=== PATIENT | male | born 1945 | race Caucasian/White ===

== ENCOUNTER 2020-11-04 10:36 | Outpatient (CLI) | payer MEDICARE, SELFPAY ==
[2020-11-04 12:05] LABS: Alanine Aminotransferase 14 U/L (0-41); Albumin Level 4.3 g/dL (3.5-5.2); Alkaline Phosphatase 61 IU/L (40-130); Anion Gap 11.8 (5-19); Aspartate Amino Transferase 18 U/L (0-40); Blood Urea Nitrogen 25 mg/dL (8-23); Calcium 9.2 mg/dL (8.5-10.5); Carbon Dioxide 28 mmol/L (22-29); Chloride 102 mmol/L (98-107); Chol HDL Ratio 4.18 mg/dL (1.0-5.00); Cholesterol 167 mg/dL (0-200); Globulin 2.4 g/dL (1.3-4.6); Glucose 124 mg/dL (65-115); HDL Cholesterol 40 mg/dL (60-100); LDL Cholesterol Calculated 110 mg/dL (50-129); LDL HDL Ratio 2.75 RATIO (0.00-3.22); Osmolality Calculated 292 mOsm/kg (285-295); Potassium 3.8 mmol/L (3.5-5.1); Sodium 138 mmol/L (136-145); Thyroid Stimulating Hormone 1.71 uIU/mL (0.27-4.20); Total Bilirubin 0.5 mg/dL (0.15-1.2); Total Protein 6.7 g/dL (6.6-8.7); Triglycerides 86 mg/dL (0-150)
[2020-11-04 12:57] LABS: Creatinine Urine, Random 89 mg/dL (39-259); Microalbum Creatinine Ratio Ur 22 mg/dL (0-20); Microalbumin Random Urine 2 ug/dL (0-20)
[2020-11-04 13:12] LABS: Estmated Average Glucose 154
== END 2020-11-04 10:37 | disposition home or self-care (01) ==
PROVIDERS: PCP Nurse Practitioner Family; Visit Provider Nurse Practitioner Family
DX: E78.2 Mixed hyperlipidemia (principal); E11.43 Type 2 diabetes mellitus with diabetic autonomic (poly)neuropathy; I10 Essential (primary) hypertension
CPT/HCPCS: 36415; 80053; 80061; 82044; 83036; 84443

== ENCOUNTER 2021-12-15 12:43 | Outpatient (CLI) | payer MEDICARE, SELFPAY ==
--- NOTE | 2021-12-15 12:53 | XR_ITS ---
WS: [id number] XR chest 2V* [id number] REASON FOR EXAM: COUGH FINDINGS: Cardiac device overlying the left chest with transvenous left subclavian vein leads to the right atri um and right ventricular apex. Mild cardiomegaly. There is a small to moderate right pleural effusion. There are reticular lung opacities in the right lower lobe and in the anterior right upper lobe. Degenerative spondylosis in the mid and lower thoracic spine, moderate. XR/XR chest 2V* [id number] IMPRESSION: Reticular opacities in the right lung which are most indicative of subacute pne umonitis. Less likely congestive failure.
[2021-12-15 14:01] LABS: Basophils % 0.2 %; Eosinophils # 0.1 10^3/uL (0.0-0.8); Lymphocytes # 1.4 10^3/uL (0.8-4.8); Lymphocytes % 17.7 %; Mean Corpuscular HGB Conc 33.3 g/dL (30.0-36.0); Mean Corpuscular Volume 93.1 fl (80-94); Mean Platelet Volume 8.5 fL (7.4-10.4); Monocytes # 0.6 10^3/uL (0.2-0.9); Monocytes % 7.2 %; Neutrophils # 5.93 10^3/uL (1.8-7.7); Neutrophils % 73.7 %; Nucleated Red Blood Cells % 0 %; Platelet Count 397 10^3/cmm (130-400); Red Blood Count 4.19 10^6/uL (4.1-5.3); Red Cell Distribution Width 12.6 % (12.1-15.1); White Blood Count 8.1 10^3/uL (4.0-10.0)
[2021-12-15 14:19] LABS: Estmated Average Glucose 151; Hemoglobin A1C 6.9 % (4.0-6.0)
[2021-12-15 14:26] LABS: Alanine Aminotransferase 30 U/L (0-41); Albumin Level 3.7 g/dL (3.5-5.2); Alkaline Phosphatase 68 IU/L (40-130); Anion Gap 16.2 (5-19); Aspartate Amino Transferase 16 U/L (0-40); Blood Urea Nitrogen 18 mg/dL (8-23); Calcium 8.2 mg/dL (8.5-10.5); Carbon Dioxide 26 mmol/L (22-29); Chloride 97 mmol/L (98-107); Free T4 Free Thyroxine 1.44 ng/dL (0.82-1.77); Glucose 191 mg/dL (65-115); Osmolality Calculated 287 mOsm/kg (285-295); Potassium 4.2 mmol/L (3.5-5.1); Sodium 135 mmol/L (136-145); Thyroid Stimulating Hormone 1.22 uIU/mL (0.27-4.20); Total Bilirubin 0.3 mg/dL (0.15-1.2); Total Protein 5.7 g/dL (6.6-8.7)
== END 2021-12-15 12:44 | disposition home or self-care (01) ==
PROVIDERS: PCP Nurse Practitioner Family; Visit Provider Nurse Practitioner Family
DX: R05.9 Cough, unspecified (principal); Z86.16 Personal history of COVID-19; J45.998 Other asthma
CPT/HCPCS: 36415; 71046; 80053; 83036; 84153; 84439; 84443; 85025

== ENCOUNTER 2022-03-01 04:40 | Inpatient (IN) | payer MEDICARE, SELFPAY ==
[2022-03-01] VITALS (54 sets, daily range): BP systolic 75–131; BP diastolic 48–88; PULSE 73–126; RESP 16–26; TEMP 36.3–37; O2SAT 95–100; BMI 23.0
[2022-03-01] MEDS: sodium chloride 0.9% 1,000 ML 999 ML IV (04:52)
--- NOTE | 2022-03-01 04:52 | W.ED.GIBLEED ---
HPI - GI Bleed General: Chief complaint: Abdominal Pain Stated complaint: N/V/D Time Seen by Provider: 03/01/22 04:42 Source: patient Mode of arrival: ambulatory Limitations: no limitations History of Present Illness: 76-year-old male who states that over the last 2 days he has been having vomiting blood along with dark tarry stools. He states he had multiple episodes of bloody stools over the last 2 days with getting much worse through the night. He states that he been having stools roughly every hour that is been dark in nature. Patient here is diaphoretic and pale and states he feels very weak and diaphoretic and feeling is in a pass out when he stands blood pressure here is 79/53 currently. No history of GI bleeds in the past he is not on any blood thinners no history of any liver disease PFSH ED PFSH: Medical History Arrhythmia BPH (benign prostatic hyperplasia) Diabetes Erectile dysfunction Hyperlipidemia Hypertension Pacemaker Family History Sister Anesthesia complication Father CAD (coronary artery disease), Onset Age: 33 Dementia Grandfather Diabetes Denies family history of Clotting disorder Chronic kidney disease (CKD) Suicide Bleeding disorder Lung disease Cancer Stroke Social History Smoking and tobacco status: never smoked Alcohol intake: never Physical Exam Const: COMMON NORMALS: patient oriented x3 and healthy appearing GENERAL APPEARANCE: in distress and ill appearing HENMT: COMMON NORMALS: normocephalic and atraumatic HEAD & SCALP: normocephalic and atraumatic Eye: COMMON NORMALS: Equal, round and reactive pupils present and EOMs intact bilaterally PUPIL: Yes Equal, round and reactive pupils present Neck/C-Spine: COMMON NORMALS: full ROM and supple Chest: COMMONS NORMALS: normal inspection of the chest and normal palpation of entire chest wall Resp: COMMON NORMALS: normal respiratory effort, No retractions, No use of accessory muscles and clear to auscultation bilaterally AUSCULTATION: clear to auscultation bilaterally Cardio: COMMON NORMALS: regular rhythm and No murmurs present (Cardio) RATE: tachycardic RHYTHM: regular rhythm GI: COMMON NORMALS: Normal to inspection, nondistended, normoactive bowel sounds present, Soft to palpation, non-tender and no masses PALPATION: Yes Soft to palpation OTHER: Rectal exam positive for black stools that is Hemoccult positive Extremity: COMMON NORMALS: normal to inspection and full ROM Neuro: COMMON NORMALS: patient oriented x3, moves all extremities and no focal motor deficits Psych: COMMON NORMALS: mental status grossly normal, Normal thought process present and cooperative THOUGHT PROCESS: Normal thought process present Skin: COMMON NORMALS: no rashes or lesions noted and no wounds NARRATIVE SKIN EXAM: pale and diaphoretic GENERAL SKIN EXAM: no rashes or lesions noted Course Vital Signs: Vital signs: Vital Signs Temperature 97.8 F 03/01/22 05:16 Pulse Rate 98 03/01/22 05:16 Respiratory Rate 18 03/01/22 05:16 Blood Pressure 114/54 03/01/22 05:16 Pulse Oximetry 99 03/01/22 05:16 MDM - GI Bleed Medical Decision Making Patient presents here with a likely upper GI bleed. Patient first driving was tachycardic hypotensive and pale and diaphoretic. He is improved appearing here after transfusion blood pressures improved to 103/55 patient also given Protonix and a Protonix drip. I spoke to hospitalist along with surgeon will admit to the ICU. Lab Data : 03/01/22 04:54 03/01/22 04:54 Laboratory Results WBC 9.9 10^3/uL (4.0-10.0) 03/01/22 04:54 RBC 3.01 10^6/uL (4.1-5.3) L 03/01/22 04:54 Hgb 9.4 g/dL (11.7-16.6) L 03/01/22 04:54 Hct 29.0 % (42.0-52.0) L 03/01/22 04:54 MCV 96.3 fl (80-94) H 03/01/22 04:54 MCH 31.2 pg (28.0-34.0) 03/01/22 04:54 MCHC 32.4 g/dL (30.0-36.0) 03/01/22 04:54 RDW 13.6 % (12.1-15.1) 03/01/22 04:54 Plt Count 223 10^3/cmm (130-400) 03/01/22 04:54 MPV 10.6 fL (7.4-10.4) H 03/01/22 04:54 Neut % (Auto) 63.0 % 03/01/22 04:54 Lymph % (Auto) 27.7 % 03/01/22 04:54 [place] % (Auto) 8.7 % 03/01/22 04:54 Eos % (Auto) 0.0 % 03/01/22 04:54 Baso % (Auto) 0.1 % 03/01/22 04:54 Neut # (Auto) 6.21 10^3/uL (1.8-7.7) 03/01/22 04:54 Lymph # (Auto) 2.7 10^3/uL (0.8-4.8) 03/01/22 04:54 [place] # (Auto) 0.9 10^3/uL (0.2-0.9) 03/01/22 04:54 Eos # (Auto) 0.0 10^3/uL (0.0-0.8) 03/01/22 04:54 Baso # (Auto) 0.0 10^3/uL (0.0-0.1) 03/01/22 04:54 Nucleated RBC % (auto) 0 % 03/01/22 04:54 Nucleated RBCs # 0.0 /100WBC 03/01/22 04:54 Critical Care Time Critical Care Time: Critical Care Time: Yes Total Critical Care Time: 40 Attestation: The high probability of a clinically significant, sudden or life threatening deterioration of the patient's gi system(s) required my full and direct attention, intervention and personal management. The critical care time is as shown. This time is in addition to time spent performing any reported procedures but includes the following: [x] Data and vital sign review and interpretation [x] Patient assessment, examination and intervention [x] Documentation [x] Medication orders and management Discharge Plan Discharge Condition: Stable Prescriptions: No Action propranolol 20 mg tablet 20 mg PO TID 0RF metformin 1,000 mg tablet 1,000 mg PO BID 0RF cetirizine 10 mg tablet 10 mg PO DAILY 0RF fluticasone propionate [Flonase Allergy Relief] 50 mcg/actuation spray,suspension 2 spray INTRANASAL DAILY 0RF Rx Instructions: administer into each nostril finasteride 5 mg tablet 5 mg PO DAILY 0RF aspirin [Adult Low Dose Aspirin] 81 mg tablet,delayed release (DR/EC) 81 mg PO DAILY 0RF tamsulosin 0.4 mg capsule 0.8 mg PO DAILY 0RF cephalexin 500 mg capsule 500 mg PO QID 0RF primidone 50 mg tablet 50 mg PO QID 0RF Pro Fe 180 mg iron capsule 180 mg PO BID 0RF cholecalciferol (vitamin D3) 25 mcg (1,000 unit) capsule 25 mcg PO DAILY 0RF zinc 50 mg tablet 50 mg PO DAILY 0RF Jardiance 25 mg tablet 25 mg PO DAILY 0RF [id number]-algal oil [Metanx (algal oil)] 3 mg-35 mg-2 mg -90.314 mg capsule 1 cap PO BID 0RF losartan 100 mg tablet 100 mg PO DAILY 0RF rosuvastatin 10 mg tablet 10 mg PO DAILY 0RF glipizide 5 mg tablet 5 mg PO DAILY [id number] Referrals: Juan Alberto Holloway RN, TICKET PRINTER AND TAGGER [Primary Care Provider] - Coding Level of Care Code ED Resort Desk Clerk for Chg Fwd Exam Comprehensive
[2022-03-01] MEDS: ondansetron 2 mg/ML SDV 2 mL 4 MG IVP (04:53)
[2022-03-01] MEDS: pantoprazole 40 mg SDV 80 MG IVP (04:57)
[2022-03-01 05:03] LABS: Basophils % 0.1 %; Hemoglobin 9.4 g/dL (11.7-16.6); Lymphocytes # 2.7 10^3/uL (0.8-4.8); Lymphocytes % 27.7 %; Mean Corpuscular HGB Conc 32.4 g/dL (30.0-36.0); Mean Corpuscular Hemoglobin 31.2 pg (28.0-34.0); Mean Corpuscular Volume 96.3 fl (80-94); Mean Platelet Volume 10.6 fL (7.4-10.4); Monocytes # 0.9 10^3/uL (0.2-0.9); Monocytes % 8.7 %; Neutrophils # 6.21 10^3/uL (1.8-7.7); Nucleated Red Blood Cells % 0 %; Platelet Count 223 10^3/cmm (130-400); Red Blood Count 3.01 10^6/uL (4.1-5.3); Red Cell Distribution Width 13.6 % (12.1-15.1); White Blood Count 9.9 10^3/uL (4.0-10.0)
--- NOTE | 2022-03-01 05:24 | ECG_ITS ---
[facility] Test Date: 2022-03-01 Pat Name: Jefferson Gamez Department: Room: [facility] Gender: Male Relations Manager: : 1945 Requested By: Faith Sierra Order Number: [id number] Marquise MD: Vamsi Craig M.D. Measurements Intervals Abie Rate: 110 P: -27 MA: 233 QRS: -68 QRSD: 212 T: 110 QT: 461 QTc: 624 Interpretive Statements ELECTRONIC VENTRICULAR PACEMAKER ABNORMAL RHYTHM ECG No previous ECG available for comparison Electronically Signed On 03-02-2022 10:47:52 CDT by Vamsi Craig M.D. [email or web address].[employer]/store/OM/[id number]
--- NOTE | 2022-03-01 05:26 | XRR_ITS ---
PROCEDURE INFORMATION: Exam: XR Chest Exam date and time: 03/01/2022 5:36 AM Age: 76 years old Clinical indication: Shortness of breath; Prior surgery; Surgery type: Pacemaker; Patient HX: SOB. ; Additional info: Gi bleed TECHNIQUE: Imaging protocol: XR of the chest. Views: 1 view. COMPARISON: CR XR chest 2V* [id number] 12/15/2021 1:13 PM FINDINGS: Tubes, catheters and devices: Stable left pacemaker. Lungs: Unremarkable. No consolidation. Pleural spaces: Interval resolution of right pleural fluid collection. Heart/Mediastinum: Unremarkable. No cardiomegaly. Bones/joints: Unremarkable. XR/XR chest 1V portable [id number] IMPRESSION: Interval resolution of right pleural fluid collection.
[2022-03-01 05:28] LABS: INR 1.26 (0.8-1.2)
[2022-03-01 05:31] LABS: Alanine Aminotransferase 16 U/L (0-41); Albumin Level 3.6 g/dL (3.5-5.2); Alkaline Phosphatase 48 IU/L (40-130); Anion Gap 21.5 (5-19); Aspartate Amino Transferase 11 U/L (0-40); Calcium 8.6 mg/dL (8.5-10.5); Carbon Dioxide 18 mmol/L (22-29); Chloride 102 mmol/L (98-107); Globulin 1.7 g/dL (1.3-4.6); Glucose 381 mg/dL (65-115); Lipase 16 U/L (13-60); Osmolality Calculated 328 mOsm/kg (285-295); Potassium 4.5 mmol/L (3.5-5.1); Sodium 137 mmol/L (136-145); Total Bilirubin 0.3 mg/dL (0.15-1.2); Total Protein 5.3 g/dL (6.6-8.7)
[2022-03-01 05:35] LABS: Blood Urea Nitrogen 92 mg/dL (8-23)
[2022-03-01 05:57] LABS: Magnesium 1.8 mg/dL (1.7-2.3)
--- NOTE | 2022-03-01 05:57 | P.HP_ITS ---
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 On presentatio n blood pressure low at 77/48. Tachycardic, 122. Received IV fluid bolus 1000 mL, started on PRBC transfusion, with hemoglobin noted down to 9.4 from 13 in December. Currently receiving second unit PRBC. Noted to have BUN of 92. He received 80 mg of Protonix IV push. Is started on Protonix drip. Creatinine is also elevated compared to normal prior currently at 1.4. Serum bicarb 18, anion gap 21.5. Lipase is normal. Liver parameters normal. He takes 81 mg of aspirin daily. Denies any NSAID use. Does not drink any alcohol. Denies any history of liver disease. He states otherwise has been at baseline state of health other than some seasonal allergy symptoms. Review of Systems Const: Denies: fever(s), chills, body aches or malaise Eyes: Denies: change in vision, eye discomfort or eye redness ENMT: Denies: throat pain, oral sores or ear or mastoid pain Card: Denies: chest pain, edema, pre-syncope or dyspnea on exertion Resp: Denies: dyspnea, productive cough, change in phlegm color or hemoptysis GI: Reports: abdominal pain (Mild generalized soreness from vomiting), coffee ground emesis and melena; Denies: nausea or vomiting : Denies: flank pain, difficulty urinating, urinary frequency or hematuria Musc: Denies: back pain, joint swelling or joint redness Skin/Breast: Denies: rash or new lesions Neuro: Denies: headache(s), numbness in extremities, weakness in extremities, dizziness, confusion or seizure-like activity Endo: Denies: polyuria or polydipsia Shaji/Lymph: Denies: easy bleeding or tender lymph nodes All/Imm: Denies: urticaria or tongue swelling Medications/Allergies Home Medications Medication Instructions Recorded Confirmed Last Taken Type aspirin 81 mg tablet,delayed 81 mg PO DAILY 05/11/20 Unknown History release (Adult Low Dose Aspirin) cetirizine 10 mg tablet 10 mg PO DAILY tab 05/11/20 Unknown History finasteride 5 mg tablet 5 mg PO DAILY 05/11/20 Unknown History fluticasone propionate 50 2 spray INTRANASAL DAILY 05/11/20 Unknown History mcg/actuation nasal spray,suspension (Flonase Allergy Relief) metformin 1,000 mg tablet 1,000 mg PO BID 05/11/20 Unknown History propranolol 20 mg tablet 20 mg PO TID 05/11/20 Unknown History cephalexin 500 mg capsule 500 mg PO QID cap 10/23/21 Unknown History cholecalciferol (vitamin D3) 25 25 mcg PO DAILY 10/23/21 Unknown History mcg (1,000 unit) capsule empagliflozin 25 mg tablet 25 mg PO DAILY tab 10/23/21 Unknown History glipizide 5 mg tablet 5 mg PO DAILY PRN tab 10/23/21 Unknown History levomefolate Ca 3 mg-B6 35 1 cap PO BID 10/23/21 Unknown History mg-meB12 2 mg-algal oil 90.314 mg capsule (Metanx (algal oil)) losartan 100 mg tablet 100 mg PO DAILY tab 10/23/21 Unknown History polysaccharide iron complex 180 mg 180 mg PO BID cap 10/23/21 Unknown History iron capsule primidone 50 mg tablet 50 mg PO QID tab 10/23/21 Unknown History rosuvastatin 10 mg tablet 10 mg PO DAILY tab 10/23/21 Unknown History tamsulosin 0.4 mg capsule 0.8 mg PO DAILY cap 10/23/21 Unknown History zinc 50 mg tablet 50 mg PO DAILY 10/23/21 Unknown History Allergies Allergy/AdvReac Type Severity Reaction Status Date / Time amoxicillin Allergy Unknown unknown Verified 10/23/21 09:12 PFSH Acute PFSH: Medical History (Updated 03/01/22 @ 06:05 by Thomas Singh MD) Arrhythmia BPH (benign prostatic hyperplasia) Diabetes Erectile dysfunction Hyperlipidemia Hypertension Pacemaker Surgical History History of eyelid surgery Hx of cataract extraction Family History Sister Anesthesia complication Father CAD (coronary artery disease), Onset Age: 33 Dementia Grandfather Diabetes Denies family history of Clotting disorder Chronic kidney disease (CKD) Suicide Bleeding disorder Lung disease Cancer Stroke Social History Smoking and tobacco status: never smoked Alcohol intake: never Substance/Drug Use: never Lives independently: Yes Vitals/I&O/Wt Last Vital Signs Temp 97.4 F L 03/01/22 05:45 Pulse 112 H 03/01/22 05:45 Resp 18 03/01/22 05:45 BP 104/60 03/01/22 05:45 Pulse Ox 98 03/01/22 05:45 02/28/22 02/28/22 03/01/22 14:59 22:59 06:59 Intake Total 350 / 350 Balance 350 / 350 Weight last 48 hrs Weight 77.111 kg Physical Exam Narrative: Daughter at bedside Const: COMMON NORMALS: alert GENERAL APPEARANCE: cooperative ORIENTATION/CONSCIOUSNESS: Yes awake OTHER: Mild pallor HENMT: COMMON NORMALS: normocephalic, EAC's normal, Normal external nose present and moist oral mucous membranes HEAD & SCALP: normocephalic NOSE: Normal external nose present EXTERNAL AUDITORY CANAL: EAC's normal Neck/C-Spine: COMMON NORMALS: no meningeal signs Chest: CHEST: Yes Symmetrical chest wall rise Resp: COMMON NORMALS: clear to auscultation bilaterally AUSCULTATION: clear to auscultation bilaterally Cardio: COMMON NORMALS: regular rate, regular rhythm and No murmurs present (Cardio) RATE: regular rate RHYTHM: regular rhythm GI: COMMON NORMALS: Normal to inspection, nondistended, normoactive bowel sounds present and Soft to palpation PALPATION: Yes Soft to palpation and Yes Tenderness to palpation present (GI) (Mild abdominal wall) Extremity: COMMON NORMALS: no pedal edema Neuro: COMMON NORMALS: moves all extremities SENSORIUM/ORIENTATION: Yes alert MENINGEAL SIGNS: Yes no meningeal signs Psych: COMMON NORMALS: mental status grossly normal Skin: COMMON NORMALS: no wounds RASHES: no rashes Data : 03/01/22 04:54 03/01/22 04:54 A&P Assessment and plan (1) Upper GI bleed: Received second unit PBC transfusion. Recheck hemoglobin 2 hours later. Monitor in ICU. Reports orthostatic symptoms, on presentation blood pressure low, 77/48, now better at 104/60. Tachycardia with improvement from 120s to 110. Protonix drip. Surgery assessment. NPO. Glipizide has possible adverse effect of gastrointestinal hemorrhage. Would consider not resuming glipizide at discharge. Status: Acute (2) Acute blood loss anemia: Second unit PRBC transfusion. Follow-up hemoglobin subsequently. As above. Status: Acute (3) ABHI (acute kidney injury): Creatinine 1.4. ABHI. Previously normal in December. Hold losartan. Likely prerenal with hypotension at presentation. Resuscitation as above. Reassess renal function. Does have history of BPH, for now tamsulosin on hold due to orthostatic symptoms. Monitor for symptoms of urine retention. Status: Acute (4) DM type 2 (diabetes mellitus, type 2): Consider not resuming glipizide at discharge with possible adverse effect of gastrointestinal hemorrhage. Sliding scale insulin. For now n.p.o. as above. Status: Acute Plan PPM HTN: Hold antihypertensives for now HLD BPH Seasonal allergies Please review home medications once reconciled. Attestations Medical Necessity Statement*: Admission of over 2 midnights is anticipated for assessment of management of acute blood loss anemia with upper GI bleed, ABHI. 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
[2022-03-01] MEDS: pantoprazole 40 MG in sodium chloride 0.9% (plus) 100 ML 20 MG IV (06:05)
--- NOTE | 2022-03-01 06:31 | PC.NURSE ---
PRBC UNIT X2 VERIFIED WITH RANDY LOPEZ RN AND MYSELF PRIOR TO ADMIN.
[2022-03-01 08:48] LABS: Glucose Point of Care 247 mg/dL (70-110)
--- NOTE | 2022-03-01 08:49 | P.PN_ITS ---
Subjective Subjective: History and physical reviewed. Patient reports he is hungry. He denies any vomiting or diarrhea since admission. He reviewed his history with me again. He also wants me to take a look at his groin, as he believes he has a hernia. Medications: Reviewed: Yes Vitals/I&O/Wt Last Vital Signs Temp 97.4 F L 03/01/22 07:05 Pulse 113 H 03/01/22 07:05 Resp 20 H 03/01/22 07:05 BP 93/51 03/01/22 07:05 Pulse Ox 97 03/01/22 07:05 02/28/22 03/01/22 03/01/22 22:59 06:59 14:59 Intake Total 350 / 350 Balance 350 / 350 Weight last 48 hrs Weight 77.111 kg Physical Exam Narrative: General exam no distress, heart rate is noted to be slightly high at around 105 HEENT: Atraumatic normocephalic. Oropharynx clear. Neck is supple no lymphadenopathy or thyromegaly Cardiovascular regular, no murmur, occasional premature beats. Lungs clear no wheezing or crackles Abdomen is soft with positive bowel sounds. Slight epigastric tenderness. No obvious organomegaly exam appears normal. Bilateral inguinal hernias are noted left greater than right. Easily reducible. No pain. Extremities no cyanosis clubbing or edema, cap refill brisk. Skin no rash Data : 03/01/22 04:54 03/01/22 04:54 A&P Assessment and plan (1) Acute blood loss anemia: Secondary to upper GI bleed Associated with high tachycardia, significant hypotension. Fluid resuscitated in the emergency department, as well as received 2 units of packed red blood cells. Status: Acute (2) Upper GI bleed: See above Risk factors include aspirin daily but did not have any anti-inflammatory use. Fair amount of caffeine use in the form of Dr. Nava. Continue Protonix drip Keep n.p.o. Surgery consult for possible EGD Hemoglobin every 4 hours, transfuse if active ongoing bleeding with symptomatic anemia or hemoglobin less than 7 Status: Acute (3) ABHI (acute kidney injury): Continue hydration Continue to monitor renal function Hold ARB. This will be held in any event secondary to hypotension on presentation Status: Acute (4) DM type 2 (diabetes mellitus, type 2): Sliding scale insulin Status: Acute (5) Pacemaker: Status: Acute Plan History of BPH. Holding Flomax secondary to association with orthostasis until he stabilizes Attestations Medical Necessity Statement*: SCDs for DVT prophylaxis. Anticoagulation contraindicated secondary to bleeding. 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
[2022-03-01] MEDS: finasteride 5 mg Tablet PO (09:08)
[2022-03-01] MEDS: insulin lispro 100 unit/1 mL SUBCUT ×2 (09:09→22:39)
[2022-03-01] MEDS: sodium chloride 0.9% 1,000 ML 100 ML IV ×2 (09:09→19:28)
[2022-03-01 10:18] LABS: Hemoglobin 10.4 g/dL (11.7-16.6)
--- NOTE | 2022-03-01 10:49 | ANES.PREANE2 ---
Pre-Anesthetic Assessment Height/Weight: Height 1.83 m Weight 77.111 kg Temp Pulse Resp BP Pulse Ox 98.6 F 106 H 22 H 93/51 95 03/01/22 10:45 03/01/22 10:45 03/01/22 10:45 03/01/22 07:05 03/01/22 10:45 Preop Diagnosis: gi bleed Operation Date: 03/01/22 10:30 Proposed Procedures p EGD(Not Applicable) - Eduardo Avendano MD Familial anesthetic complications: None Was Beta Summer taken within 24 hours: Yes Was Clonidine taken within 24 hours: N/A Social No alcohol and No tobacco Exam alert, oriented x 3 and clear to auscultation bilaterally Tachy hypotensive in ICU Airway Submandibular: within normal limits Cervical ROM: within normal limits Mallampati: Class II Dentition: full CV/HEM Anemia and Hypertension Pacemaker GI GI bleed Metabolic Diabetes Mellitus and Hyperlipidemia Anesthetic Plan ASA status: 3 Anesthesia: MAC Risk of > 500 ml blood loss (7ml/kg in children): No Medications/Allergies Home Medications Medication Instructions Recorded Confirmed Last Taken Type aspirin 81 mg tablet,delayed 81 mg PO QPM 05/11/20 03/01/22 Unknown History release (Adult Low Dose Aspirin) cetirizine 10 mg tablet 10 mg PO QPM tab 05/11/20 03/01/22 Unknown History finasteride 5 mg tablet 5 mg PO BEDTIME 05/11/20 03/01/22 Unknown History fluticasone propionate 50 2 spray INTRANASAL DAILY PRN 05/11/20 03/01/22 Unknown History mcg/actuation nasal spray,suspension (Flonase Allergy Relief) metformin 1,000 mg tablet 1,000 mg PO BID 05/11/20 03/01/22 Unknown History propranolol 20 mg tablet 40 mg PO BID 05/11/20 03/01/22 Unknown History cholecalciferol (vitamin D3) 25 25 mcg PO DAILY 10/23/21 03/01/22 Unknown History mcg (1,000 unit) capsule empagliflozin 25 mg tablet 25 mg PO QAM tab 10/23/21 03/01/22 Unknown History glipizide 5 mg tablet 5 mg PO DAILY PRN tab 10/23/21 03/01/22 Unknown History losartan 100 mg tablet 100 mg PO QAM tab 10/23/21 03/01/22 Unknown History polysaccharide iron complex 180 mg 180 mg PO BID cap 10/23/21 03/01/22 Unknown History iron capsule (Pro Fe) primidone 50 mg tablet 50 mg PO QID tab 10/23/21 03/01/22 Unknown History rosuvastatin 10 mg tablet 10 mg PO DAILY tab 10/23/21 03/01/22 01/29/22 History not taken for month tamsulosin 0.4 mg capsule 0.8 mg PO BEDTIME cap 10/23/21 03/01/22 Unknown History zinc 50 mg tablet 50 mg PO DAILY 10/23/21 03/01/22 Unknown History albuterol sulfate 90 mcg/actuation 2 puff INHALATION Q4H PRN 03/01/22 03/01/22 Unknown History aerosol inhaler ascorbic acid (vitamin C) 500 mg 500 mg PO BID 03/01/22 03/01/22 Unknown History tablet (Vitamin C) fluconazole 150 mg tablet 150 mg PO .EVERY 3 DAYS 03/01/22 03/01/22 02/27/22 History furosemide 20 mg tablet 20 mg PO DAILY PRN 03/01/22 03/01/22 Unknown History gabapentin 300 mg capsule 300 mg PO TID 03/01/22 03/01/22 Unknown History mecobalamin-levomefolate 1 tab PO BID 03/01/22 03/01/22 Unknown History calcium-pyridoxal phos 3 mg-35 mg-2 mg tablet nystatin 100,000 unit/mL oral 7.5 ml PO QID PRN 03/01/22 03/01/22 02/27/22 History suspension promethazine-DM 6.25 mg-15 mg/5 mL 5 ml PO Q4H PRN 03/01/22 03/01/22 Unknown History oral syrup tizanidine 4 mg tablet 4 mg PO TID PRN 03/01/22 03/01/22 Unknown History tramadol 50 mg tablet 50 mg PO Q4H PRN 03/01/22 03/01/22 Unknown History Allergies Allergy/AdvReac Type Severity Reaction Status Date / Time amoxicillin Allergy Unknown unknown Verified 10/23/21 09:12 Penicillins Allergy Unknown Verified 03/01/22 08:57 Current Medications Generic Name Dose Route Start Last Admin Trade Name Freq PRN Reason Stop Dose Admin Finasteride 5 mg 03/01/22 09:00 03/01/22 09:08 Finasteride 5 Mg Tablet PO 5 mg DAILY HANH Administration Sodium Chloride 1,000 mls @ 100 mls/hr 03/01/22 09:00 03/01/22 09:09 Sodium Chloride 0.9% IV 100 mls/hr .Q10H HANH Administration Insulin Human Lispro 0 unit 03/01/22 07:06 03/01/22 09:09 Insulin Lispro 100 Unit/1 Ml SUBCUT 6 unit Q8H HANH Administration Protocol [facility] Anesthesia Medical History (Updated 03/01/22 @ 06:05 by Thomas Singh MD) Arrhythmia BPH (benign prostatic hyperplasia) Diabetes Erectile dysfunction Hyperlipidemia Hypertension Pacemaker Surgical History History of eyelid surgery Hx of cataract extraction Family History Sister Anesthesia complication Father CAD (coronary artery disease), Onset Age: 33 Dementia Grandfather Diabetes Denies family history of Clotting disorder Chronic kidney disease (CKD) Suicide Bleeding disorder Lung disease Cancer Stroke Social History Smoking and tobacco status: never smoked Alcohol intake: never Substance/Drug Use: never Lives independently: Yes Data Anesthesia : 03/01/22 09:52 03/01/22 04:54 Short CBC 03/01/22 03/01/22 Range/Units 04:54 09:52 WBC 9.9 (4.0-10.0) 10^3/uL Hgb 9.4 L 10.4 L (11.7-16.6) g/dL Hct 29.0 L (42.0-52.0) % MCV 96.3 H (80-94) fl Plt Count 223 (130-400) 10^3/cmm Neut % (Auto) 63.0 % Neut # (Auto) 6.21 (1.8-7.7) 10^3/uL BMP 03/01/22 04:54 Sodium 137 Potassium 4.5 Chloride 102 Carbon Dioxide 18 L BUN 92 H* D Creatinine 1.4 H Glucose 381 H Calcium 8.6 Liver Function 03/01/22 Range/Units 04:54 Total Bilirubin 0.3 (0.15-1.2) mg/dL AST 11 (0-40) U/L ALT 16 (0-41) U/L Alkaline Phosphatase 48 (40-130) IU/L Albumin 3.6 (3.5-5.2) g/dL Blood Bank 03/01/22 04:54 Blood Type O Negative Rho(D) Type Negative Antibody Screen Negative Coags 03/01/22 04:54 PT 16.20 H INR 1.26 H Cardiac Studies: No Data to Display
--- NOTE | 2022-03-01 11:40 | PM.CONSULT ---
Providers/Reason For Consult Consulting Physician/Specialty*: General Surgery Dr. Avendano Reason for Consult*: GI bleed Attending Physician: Yrn Eddy MD Primary Care Provider: Juan Alberto Holloway RN, STAIN DIPPER History of Present Illness History of Present Illness Jefferson Gamez is a 76 year old male who presented to the ER with coffee-ground emesis for the last couple of days. Patient states that he been trying to stay hydrated but every time he drank he had further episodes. He denies any abdominal pain. No similar episodes in the past. He denies any constipation or diarrhea. He has also been having some black stools. No history of PUD or prior EGD. He is up-to-date on his colonoscopy. Patient does not drink alcohol, no history of liver disease or NSAID use except aspirin 81 mg daily. Patient is noted to be hypotensive and therefore received 2 units PRBC and was admitted to the ICU for monitoring Review of Systems General: Reports: 10 or more systems reviewed and unremarkable except in HPI and below Medications/Allergies Home Medications Medication Instructions Recorded Confirmed Last Taken Type aspirin 81 mg tablet,delayed 81 mg PO QPM 05/11/20 03/01/22 Unknown History release (Adult Low Dose Aspirin) cetirizine 10 mg tablet 10 mg PO QPM tab 05/11/20 03/01/22 Unknown History finasteride 5 mg tablet 5 mg PO BEDTIME 05/11/20 03/01/22 Unknown History fluticasone propionate 50 2 spray INTRANASAL DAILY PRN 05/11/20 03/01/22 Unknown History mcg/actuation nasal spray,suspension (Flonase Allergy Relief) metformin 1,000 mg tablet 1,000 mg PO BID 05/11/20 03/01/22 Unknown History propranolol 20 mg tablet 40 mg PO BID 05/11/20 03/01/22 Unknown History cholecalciferol (vitamin D3) 25 25 mcg PO DAILY 10/23/21 03/01/22 Unknown History mcg (1,000 unit) capsule empagliflozin 25 mg tablet 25 mg PO QAM tab 10/23/21 03/01/22 Unknown History glipizide 5 mg tablet 5 mg PO DAILY PRN tab 10/23/21 03/01/22 Unknown History losartan 100 mg tablet 100 mg PO QAM tab 10/23/21 03/01/22 Unknown History polysaccharide iron complex 180 mg 180 mg PO BID cap 10/23/21 03/01/22 Unknown History iron capsule (Pro Fe) primidone 50 mg tablet 50 mg PO QID tab 10/23/21 03/01/22 Unknown History rosuvastatin 10 mg tablet 10 mg PO DAILY tab 10/23/21 03/01/22 01/29/22 History not taken for month tamsulosin 0.4 mg capsule 0.8 mg PO BEDTIME cap 10/23/21 03/01/22 Unknown History zinc 50 mg tablet 50 mg PO DAILY 10/23/21 03/01/22 Unknown History albuterol sulfate 90 mcg/actuation 2 puff INHALATION Q4H PRN 03/01/22 03/01/22 Unknown History aerosol inhaler ascorbic acid (vitamin C) 500 mg 500 mg PO BID 03/01/22 03/01/22 Unknown History tablet (Vitamin C) fluconazole 150 mg tablet 150 mg PO .EVERY 3 DAYS 03/01/22 03/01/22 02/27/22 History furosemide 20 mg tablet 20 mg PO DAILY PRN 03/01/22 03/01/22 Unknown History gabapentin 300 mg capsule 300 mg PO TID 03/01/22 03/01/22 Unknown History mecobalamin-levomefolate 1 tab PO BID 03/01/22 03/01/22 Unknown History calcium-pyridoxal phos 3 mg-35 mg-2 mg tablet nystatin 100,000 unit/mL oral 7.5 ml PO QID PRN 03/01/22 03/01/22 02/27/22 History suspension promethazine-DM 6.25 mg-15 mg/5 mL 5 ml PO Q4H PRN 03/01/22 03/01/22 Unknown History oral syrup tizanidine 4 mg tablet 4 mg PO TID PRN 03/01/22 03/01/22 Unknown History tramadol 50 mg tablet 50 mg PO Q4H PRN 03/01/22 03/01/22 Unknown History Allergies Allergy/AdvReac Type Severity Reaction Status Date / Time amoxicillin Allergy Unknown unknown Verified 10/23/21 09:12 Penicillins Allergy Unknown Verified 03/01/22 08:57 Current Medications Generic Name Dose Route Start Last Admin Trade Name Freq PRN Reason Stop Dose Admin Finasteride 5 mg 03/01/22 09:00 03/01/22 09:08 Finasteride 5 Mg Tablet PO 5 mg DAILY HANH Administration Sodium Chloride 1,000 mls @ 100 mls/hr 03/01/22 09:00 03/01/22 09:09 Sodium Chloride 0.9% IV 100 mls/hr .Q10H HANH Administration Insulin Human Lispro 0 unit 03/01/22 07:06 03/01/22 09:09 Insulin Lispro 100 Unit/1 Ml SUBCUT 6 unit Q8H HANH Administration Protocol PFSH Acute PFSH: Medical History (Updated 03/01/22 @ 12:04 by Eduardo Avendano MD) Arrhythmia Bilateral inguinal hernia BPH (benign prostatic hyperplasia) Diabetes Erectile dysfunction Hyperlipidemia Hypertension Pacemaker Surgical History History of eyelid surgery Hx of cataract extraction Family History Sister Anesthesia complication Father CAD (coronary artery disease), Onset Age: 33 Dementia Grandfather Diabetes Denies family history of Clotting disorder Chronic kidney disease (CKD) Suicide Bleeding disorder Lung disease Cancer Stroke Social History Smoking and tobacco status: never smoked Alcohol intake: never Substance/Drug Use: never Lives independently: Yes Vitals/I&O/Wt Last Vital Signs Temp 98.6 F 03/01/22 10:45 Pulse 106 H 03/01/22 10:45 Resp 22 H 03/01/22 10:45 BP 83/55 03/01/22 09:30 Pulse Ox 95 03/01/22 10:45 02/28/22 03/01/22 03/01/22 22:59 06:59 14:59 Intake Total 350 / 350 100 / 100 Output Total 350 / 350 Balance 350 / 350 -250 / -250 Weight last 48 hrs Weight 170 lb Physical Exam Narrative: HEENT: Normocephalic Eye: Sclera /conjunctiva normal Abdomen: Soft to palpation, nontender, nondistended, bilateral reducible inguinal hernia Neurological: Oriented to place person and time Skin: Intact, no lesions appreciated on gross exam Data : 03/01/22 09:52 03/01/22 04:54 A&P Assessment and plan (1) Upper GI bleed: 76-year-old male who presents with 2-day history of coffee-ground emesis and has been hypotensive. No prior history of NSAID use, alcoholic liver disease or PUD. Plan for EGD under MAC today Procedure, risks, benefits and alternatives have been discussed with the patient who wishes to proceed with surgery. Status: Acute (2) Bilateral inguinal hernia: Patient also has longstanding history of bilateral inguinal hernia which are reducible. Follow-up in clinic to reassess since he is not symptomatic Status: Acute Consult Attestations Medical Necessity Statement: As per attending physician Coding Level of Care Code Acute Pre Billing Specialist for [facility] Fwd Diagnoses Upper GI bleed K92.2 Bilateral inguinal hernia K40.20
--- NOTE | 2022-03-01 13:04 | ANE.PACU2 ---
Inpatient post-anesthesia follow up: Airway intact: Yes Vital signs: Temperature 98.6 F Pulse Rate 110 Respiratory Rate 16 Blood Pressure 99/64 Pulse Oximetry 95 Oxygen Delivery Me thod Room Air Oxygen Flow Rate Fraction of Inspir ed Oxygen Hydration adequate: Yes Nausea and vomiting: No Pain level: 1 Mental status: Baseline
[2022-03-01 14:25] LABS: Hemoglobin 9.9 g/dL (11.7-16.6)
[2022-03-01 14:48] LABS: Anion Gap 14.6 (5-19); Calcium 8.5 mg/dL (8.5-10.5); Carbon Dioxide 20 mmol/L (22-29); Chloride 110 mmol/L (98-107); Glucose 143 mg/dL (65-115); Osmolality Calculated 321 mOsm/kg (285-295); Potassium 3.6 mmol/L (3.5-5.1); Sodium 141 mmol/L (136-145)
[2022-03-01 14:52] LABS: Blood Urea Nitrogen 88 mg/dL (8-23)
--- NOTE | 2022-03-01 15:00 | PC.NURSE ---
Patient noted to have a 5 beat run of Vtach at 1318, patient denies chest pain states ?his pacemaker felt weird.? Dr. Eddy notified, orders to get a potassium and Magnesium lab draw stat. Potassium came back 3.5 orders to give 40meq PO of Potassium to patient, see eMar. Will continue to monitor.
[2022-03-01 15:27] LABS: Magnesium 1.9 mg/dL (1.7-2.3)
[2022-03-01] MEDS: potassium chloride ER 20 mEq Tablet 40 MEQ PO (15:39)
[2022-03-01 17:35] LABS: Hemoglobin 9.4 g/dL (11.7-16.6)
--- NOTE | 2022-03-01 20:00 | PC.NURSE ---
Family at Bedside Patient's , Zaira Gamez, at patient bedside from 1900 to 1999. Education provided included current lab results, full liquid diet options, and visiting hours policy. Patient and family verbalized understanding. stated intent on visiting again in the morning.
[2022-03-01] MEDS: metoprolol tartrate 25 mg Tablet 12.5 MG PO (20:07)
[2022-03-01 21:00] LABS: Hemoglobin 9.1 g/dL (11.7-16.6)
--- NOTE | 2022-03-01 21:20 | PC.NURSE ---
Personal Hygiene Patient bed bath completed with moderate assistance. New gown placed on patient and new linens fitted on bed. Patient able to transfer from bed to chair and back to bed with standby assistance. All vitals remained stable and patient tolerated activity well.
[2022-03-01 22:39] LABS: Glucose Point of Care 196 mg/dL (70-110)
--- NOTE | 2022-03-01 22:43 | PC.NURSE ---
SCD Education on benefits of SCDs provided to patient. Patient verbalized understanding and refused use due to sciatica pain.
[2022-03-02] VITALS (55 sets, daily range): BP systolic 86–142; BP diastolic 45–89; PULSE 57–98; RESP 10–24; TEMP 36.3–37.1; O2SAT 79–100; BMI 15.4
[2022-03-02 04:53] LABS: Basophils % 0.4 %; Eosinophils # 0.1 10^3/uL (0.0-0.8); Eosinophils % 1.4 %; Hematocrit 25.5 % (42.0-52.0); Hemoglobin 8.3 g/dL (11.7-16.6); Lymphocytes # 2.3 10^3/uL (0.8-4.8); Lymphocytes % 28.1 %; Mean Corpuscular HGB Conc 32.5 g/dL (30.0-36.0); Mean Corpuscular Hemoglobin 31.8 pg (28.0-34.0); Mean Corpuscular Volume 97.7 fl (80-94); Mean Platelet Volume 10.5 fL (7.4-10.4); Monocytes # 0.8 10^3/uL (0.2-0.9); Monocytes % 9.3 %; Neutrophils # 4.87 10^3/uL (1.8-7.7); Neutrophils % 60.4 %; Nucleated Red Blood Cells % 0 %; Platelet Count 147 10^3/cmm (130-400); Red Blood Count 2.61 10^6/uL (4.1-5.3); Red Cell Distribution Width 14.9 % (12.1-15.1); White Blood Count 8.1 10^3/uL (4.0-10.0)
[2022-03-02] MEDS: TRAMadol 50 mg Tablet PO (05:07)
--- NOTE | 2022-03-02 05:17 | PC.NURSE ---
Pain Medication Patient complaining of pain at a 7, on a 1-10 numerical scale, in right calf and states that it is his sciatica nerve acting up. Patient also states that he normally takes tramadol at home for this pain. Dr. Singh notified of pain and normal medication; telephone order received for one time dose tramadol 50 mg PO. Medication administered per JAN.
[2022-03-02 05:19] LABS: Alanine Aminotransferase 12 U/L (0-41); Alkaline Phosphatase 35 IU/L (40-130); Anion Gap 11.8 (5-19); Aspartate Amino Transferase 12 U/L (0-40); Blood Urea Nitrogen 60 mg/dL (8-23); Calcium 8.1 mg/dL (8.5-10.5); Carbon Dioxide 21 mmol/L (22-29); Chloride 113 mmol/L (98-107); Globulin 1.3 g/dL (1.3-4.6); Glucose 109 mg/dL (65-115); Osmolality Calculated 311 mOsm/kg (285-295); Potassium 3.8 mmol/L (3.5-5.1); Sodium 142 mmol/L (136-145); Total Bilirubin 0.2 mg/dL (0.15-1.2); Total Protein 4.3 g/dL (6.6-8.7)
[2022-03-02] MEDS: sodium chloride 0.9% 1,000 ML 100 ML IV (05:46)
--- NOTE | 2022-03-02 05:55 | PC.NURSE ---
Addendum entered by Radha Faria RN 03/02/22 06:22: Order received to transfuse 1 unit of PRBCs once. Original Note: HGB Patient's hemoglobin dropped from 9.1 yesterday to 8.[address] Singh notified and orders received. See TAR for administration.
[2022-03-02 07:35] LABS: Glucose Point of Care 125 mg/dL (70-110)
[2022-03-02] MEDS: finasteride 5 mg Tablet PO (08:55)
[2022-03-02] MEDS: metoprolol tartrate 25 mg Tablet 12.5 MG PO ×2 (08:55→20:07)
--- NOTE | 2022-03-02 09:47 | PM.PN ---
Subjective Subjective: Jefferson reports he feels pretty good this morning. No dizziness. Wants to know if he can eat more. He has not had any bowel movements with blood, abdominal discomfort, or dark stool overnight. Medications: Reviewed: Yes Vitals/I&O/Wt Last Vital Signs Temp 98.7 F 03/02/22 07:30 Pulse 75 03/02/22 09:30 Resp 17 03/02/22 09:30 BP 104/64 03/02/22 09:30 Pulse Ox 98 03/02/22 09:30 03/01/22 03/02/22 03/02/22 22:59 06:59 14:59 Intake Total 1400 / 1500 1462 / 2962 Output Total 1100 / 1450 400 / 1850 Balance 300 / 50 1062 / 1112 Weight last 48 hrs Weight 51.528 kg Weight 77.111 kg Physical Exam Narrative: General exam no distress, heart rate improved HEENT: Atraumatic normocephalic. Oropharynx clear. Neck is supple no lymphadenopathy or thyromegaly Cardiovascular regular, no murmur, occasional premature beats. Lungs clear no wheezing or crackles Abdomen is soft with positive bowel sounds. No tenderness currently Extremities no cyanosis clubbing or edema, cap refill brisk. Skin no rash Data : 03/02/22 04:25 03/02/22 04:25 A&P Assessment and plan (1) Acute blood loss anemia: Secondary to upper GI bleed Associated with high tachycardia, significant hypotension. Fluid resuscitated in the emergency department, as well as received 2 units of packed red blood cells. There was concern this morning that he might require another unit of blood his blood pressures were soft and hemoglobin had drifted down. As he is currently somewhat improved with adequate blood pressure and no symptomatology will hold off and recheck hemoglobin around noon. Can diminish fluids Advance diet to soft If remains stable transfer out of ICU following hemoglobin at noon Status: Acute (2) Upper GI bleed: See above Risk factors include aspirin daily but did not have any anti-inflammatory use. Fair amount of caffeine use in the form of Dr. Nava. Change Protonix drip to IV every 12 hours Advance diet Appreciate surgery consultation. This demonstrated an ulcer at the gastroesophageal junction Repeat hemoglobin around noon Status: Acute (3) ABHI (acute kidney injury): Reduce IV fluids Continue to monitor renal function Hold ARB. This will be held in any event secondary to hypotension on presentation Status: Acute (4) DM type 2 (diabetes mellitus, type 2): Sliding scale insulin Status: Acute (5) Pacemaker: Status: Acute Plan Hypertension, history of pacemaker placement. Low-dose beta-abel added which he is tolerating. History of BPH. Holding Flomax secondary to association with orthostasis until he stabilizes Attestations Medical Necessity Statement*: Needs continued hospitalization for close monitoring following significant GI bleed Coding Level of Care Code Acute Production Generalist for [facility] Fwd Diagnoses Acute blood loss anemia D62 Upper GI bleed K92.2 ABHI (acute kidney injury) N17.9 DM type 2 (diabetes mellitus, type 2) E11.9 Pacemaker Z95.0
--- NOTE | 2022-03-02 10:27 | USCV_ITS ---
Jefferson Gamez Age: 76 Gender: M : 1945 Exam Date: 03/02/2022 21:22 Ordering Phys: Yrn Eddy MD Technologist: SHUN [place] [facility] [place]: arrhythmia BP: 126 / 65 HR: 77 Rhythm: Other Technical Quality: Suboptimal MEASUREMENTS (Male / Female) Normal Values 2D ECHO LV Diastolic Diameter PLAX 3.6 cm 4.2 - 5.9 / 3.9 - 5.3 cm LV Systolic Diameter PLAX 3.0 cm IVS Diastolic Thickness 1.6 cm 0.6 - 1.0 / 0.6 - 0.9 cm IVS Systolic Thickness 1.7 cm LVPW Diastolic Thickness 2.0 cm 0.6 - 1.0 / 0.6 - 0.9 cm LVPW Systolic Thickness 1.9 cm LVOT Diameter 2.2 cm LV Ejection Fraction 2D Teich 24.5 % LV Ejection Fraction MOD 2C 54.9 % LV Ejection Fraction 2C AL 54.6 % LA Diameter 3.5 cm LA Width 4.8 cm LA Height 5.5 cm RA Width 2.9 cm RA Height 4.4 cm Aorta at Sinotubular Diameter 2.8 cm M-MODE Aortic Annulus Diameter 3.0 cm LA Ao Ratio MM 1.2 MV E Point Septal Separation 2.0 cm DOPPLER AV Peak Velocity 149.0 cm/s LVOT Peak Velocity 84.0 cm/s AV Area Cont Eq vti 2.2 cm squared AV Area Cont Eq pk 2.1 cm squared MV Area PHT 5.0 cm squared Mitral E to A Ratio 0.5 MV E' Velocity 30.0 cm/s Mitral E to MV E' Ratio 5.9 Mitral E to LV E' Lateral Ratio 4.4 Mitral E to LV E' Septal Ratio 8.8 TR Peak Velocity 222.2 cm/s TR Peak Gradient 19.7 mmHg TR Mean Velocity 131.8 cm/s TR Mean Gradient 9.1 mmHg TR Velocity Time Integral 39.5 cm Right Atrial Pressure 3.0 mmHg Pulmonary Artery Systolic Pressu 22.7 mmHg PV Peak Velocity 139.0 cm/s FINDINGS Left Ventricle Ventricle is not well seen. The rhythm is paced so there is septal dyssynergy. There is probably mild overall global hypokinesis. A rough estimate of the ejection fraction would be 40%. Grade 2 diastolic dysfunction. Right Ventricle Normal right ventricular size and systolic function. Normal right ventricular systolic pressure. Catheter/pacemaker wire in the right ventricular cavity. Right Atrium Mildly increased right atrial size. Left Atrium Mildly increased left atrial size. Mitral Valve Structurally normal mitral valve. Mild mitral valve regurgitation. Aortic Valve Structurally normal trileaflet aortic valve. No aortic valve regurgitation. No aortic valve stenosis. Tricuspid Valve Structurally normal tricuspid valve. Trace tricuspid valve regurgitation. Pulmonic Valve Pulmonic valve not well visualized. Pericardium Normal pericardium without effusion. Aorta Normal ascending aorta dimension. CONCLUSIONS Ventricle is not well seen. The rhythm is paced so there is septal dyssynergy. There is probably mild overall global hypokinesis. A rough estimate of the ejection fraction would be 40%. Grade 2 diastolic dysfunction. Normal right ventricular size and systolic function. Normal right ventricular systolic pressure. Catheter/pacemaker wire in the right ventricular cavity. Mildly increased right atrial size. Mildly increased left atrial size. Structurally normal mitral valve. Mild mitral valve regurgitation. Dr. Sly Velasquez MD (Electronically Signed) Final Date: 03 March 2022 07:06 S
--- NOTE | 2022-03-02 10:31 | W.PM.EVENTAC ---
Event Note Event Note: Patient with episode of nonsustained ventricular tachycardia. His blood pressures have been borderline low, and cardiac history we will go ahead and transfuse 1 more unit of packed red blood. Pacemaker interrogation, echocardiogram, cardiology consultation. Check magnesium and TSH blood in lab. Continue metoprolol, advance dose in future if blood pressure tolerates.
[2022-03-02] MEDS: potassium chloride ER 20 mEq Tablet PO (10:32)
[2022-03-02] MEDS: pantoprazole 40 mg SDV IVP ×2 (10:32→22:12)
[2022-03-02 11:29] LABS: Thyroid Stimulating Hormone 3.72 uIU/mL (0.27-4.20)
--- NOTE | 2022-03-02 11:46 | PC.CHAP ---
Pastoral Care Encounter/Spiritual Assessment Type of Contact [] Declined project systems engineer visit [] Patient/Family/Request visit [] Outpatient visit [] Follow-up visit [] Physician referral [] Code/Alert [x] Routine visit [] Staff referral [] Actively dying [] Patient sleeping [x] Family support [] [] Out of room [] Palliative care [] [] Receiving care in room [] Pre-surgical visit [] Trauma [] Long length of stay [x] ICU visit [x] Other: patients coloring improving.. ate a little soft food-- was happy Relational/Emotional Strength [] Patient feels connected with others/family/visitors/staff [] Distress [] Loneliness/isolation [] Abandonment Spirituality of Patient [] Person of Tabby [] Attends Latter-Day of their Tabby [] Believes in Prayer [] Reads Bible or Episcopalian materials [] There are Spiritual issues to be addressed Prick Stitcher Interventions [x] Prayer [x] Active listening [x] Non-anxious presence [x] Spiritual/emotional support [] Crisis/trauma care [] Spiritual counseling [] Bereavement support [] Provided bereavement packet [] Provided Bible/devotional materials [] Provided toy/stuffed animal, coloring book to patient or family member [] Provided Communion [] Anointing/[place] [] Salvation [x] Completed spiritual assessment [] Other: Impact on Illness or Injury [] Angry [] Fearful [] Anxious [] Often cries [] Exhaustion [] Unable to work [] Unable to attend anabaptism [] Unable to walk/stand [] Unable to read [] Unable to drive [] Unable to eat/drink [] Unable to sleep [] Unable to be with family [] Patient intubated [] Other: Summary patient very happy with care... possibly moving to another floor... Time spent with patient 20 min
--- NOTE | 2022-03-02 14:29 | PM.PN ---
Subjective Subjective: Hemoglobin stable, blood pressure is improved, no further hematemesis or melena Medications: Reviewed: Yes Vitals/I&O/Wt Last Vital Signs Temp 97.8 F 03/02/22 13:58 Pulse 60 03/02/22 13:58 Resp 14 03/02/22 13:58 BP 128/61 03/02/22 13:58 Pulse Ox 100 03/02/22 13:58 03/01/22 03/02/22 03/02/22 22:59 06:59 14:59 Intake Total 1400 / 2962 1462 / 2962 950 / 950 Output Total 1100 / 1850 400 / 1850 400 / 400 Balance 300 / 1112 1062 / 1112 550 / 550 Weight last 48 hrs Weight 113 lb 9.6 oz Weight 170 lb Physical Exam Narrative: HEENT: Normocephalic Eye: Sclera /conjunctiva normal Neurological: Oriented to place person and time Skin: Intact, no lesions appreciated on gross exam Data : 03/02/22 04:25 03/02/22 04:25 A&P Assessment and plan (1) Bilateral inguinal hernia: Follow-up in clinic Status: Acute (2) Upper GI bleed: Status post EGD showing ulcer at the GE junction with no evidence of active GI bleed. No evidence of continued bleed. Patient is currently receiving 1 unit PRBC GI soft diet Continue PPI therapy Status: Acute Attestations Medical Necessity Statement*: As per primary Coding Level of Care Code Acute Forest Management Professor for [facility] Diagnoses Bilateral inguinal hernia K40.20 Upper GI bleed K92.2
--- NOTE | 2022-03-02 14:37 | PM.CONSULT ---
Providers/Reason For Consult Consulting Physician/Specialty*: Cardiovascular medicine Reason for Consult*: Nonsustained ventricular tachycardia Requesting Physician: Surjit Attending Physician: Yrn Eddy MD Primary Care Provider: Juan Alberto Holloway RN, FI[employer] H[employer]SE COACH History of Present Illness History of Present Illness Jefferson Gamez is a 76 year old male who has little in the way of cardiac history. He has a pacemaker but no other underlying organic heart disease that I am aware of. He has diabetes, hypertension and dyslipidemia. I interviewed him in the room in the ICU today and his is in the room as well. I was asked to see him because of episodes of nonsustained ventricular tachycardia. He was admitted yesterday with GI bleeding and melena and. He was weak, diaphoretic and presyncopal. He was hypotensive with a blood pressure of 77/48, elevated heart rate. Initially he was resuscitated with intravenous fluids and 2 units of packed red cells. His creatinine was mildly elevated. He underwent rather urgent EGD. An ulcer was found in his stomach and was treated. Today his latest hemoglobin is 8.3. He is no longer bleeding. Today he began to have episodes of nonsustained ventricular tachycardia. A couple of these were greater than 20 beats. Pacemaker check and an echo are pending. He was given 1 more unit of packed red blood cells. His electrolytes appear to be in order. His BUN reached as high as 88 but his creatinine has remained right around 1 or 1.1. Calcium is normal. His transaminases are normal. His magnesium is 2.0. Potassium is 3.8. He is awake and alert and conversant and does not offer any complaints. Review of Systems Narrative: Review of systems is negative with the exception of those symptoms associated with a GI bleed Medications/Allergies Home Medications Medication Instructions Recorded Confirmed Last Taken Type aspirin 81 mg tablet,delayed 81 mg PO QPM 05/11/20 03/01/22 Unknown History release (Adult Low Dose Aspirin) cetirizine 10 mg tablet 10 mg PO QPM tab 05/11/20 03/01/22 Unknown History finasteride 5 mg tablet 5 mg PO BEDTIME 05/11/20 03/01/22 Unknown History fluticasone propionate 50 2 spray INTRANASAL DAILY PRN 05/11/20 03/01/22 Unknown History mcg/actuation nasal spray,suspension (Flonase Allergy Relief) metformin 1,000 mg tablet 1,000 mg PO BID 05/11/20 03/01/22 Unknown History propranolol 20 mg tablet 40 mg PO BID 05/11/20 03/01/22 Unknown History cholecalciferol (vitamin D3) 25 25 mcg PO DAILY 10/23/21 03/01/22 Unknown History mcg (1,000 unit) capsule empagliflozin 25 mg tablet 25 mg PO QAM tab 10/23/21 03/01/22 Unknown History glipizide 5 mg tablet 5 mg PO DAILY PRN tab 10/23/21 03/01/22 Unknown History losartan 100 mg tablet 100 mg PO QAM tab 10/23/21 03/01/22 Unknown History polysaccharide iron complex 180 mg 180 mg PO BID cap 10/23/21 03/01/22 Unknown History iron capsule (Pro Fe) primidone 50 mg tablet 50 mg PO QID tab 10/23/21 03/01/22 Unknown History rosuvastatin 10 mg tablet 10 mg PO DAILY tab 10/23/21 03/01/22 01/29/22 History not taken for month tamsulosin 0.4 mg capsule 0.8 mg PO BEDTIME cap 10/23/21 03/01/22 Unknown History zinc 50 mg tablet 50 mg PO DAILY 10/23/21 03/01/22 Unknown History albuterol sulfate 90 mcg/actuation 2 puff INHALATION Q4H PRN 03/01/22 03/01/22 Unknown History aerosol inhaler ascorbic acid (vitamin C) 500 mg 500 mg PO BID 03/01/22 03/01/22 Unknown History tablet (Vitamin C) fluconazole 150 mg tablet 150 mg PO .EVERY 3 DAYS 03/01/22 03/01/22 02/27/22 History furosemide 20 mg tablet 20 mg PO DAILY PRN 03/01/22 03/01/22 Unknown History gabapentin 300 mg capsule 300 mg PO TID 03/01/22 03/01/22 Unknown History mecobalamin-levomefolate 1 tab PO BID 03/01/22 03/01/22 Unknown History calcium-pyridoxal phos 3 mg-35 mg-2 mg tablet nystatin 100,000 unit/mL oral 7.5 ml PO QID PRN 03/01/22 03/01/22 02/27/22 History suspension promethazine-DM 6.25 mg-15 mg/5 mL 5 ml PO Q4H PRN 03/01/22 03/01/22 Unknown History oral syrup tizanidine 4 mg tablet 4 mg PO TID PRN 03/01/22 03/01/22 Unknown History tramadol 50 mg tablet 50 mg PO Q4H PRN 03/01/22 03/01/22 Unknown History Allergies Allergy/AdvReac Type Severity Reaction Status Date / Time amoxicillin Allergy Unknown unknown Verified 10/23/21 09:12 Penicillins Allergy Unknown Verified 03/01/22 08:57 Current Medications Generic Name Dose Route Start Last Admin Trade Name Freq PRN Reason Stop Dose Admin Finasteride 5 mg 03/01/22 09:00 03/02/22 08:55 Finasteride 5 Mg Tablet PO 5 mg DAILY HANH Administration Gabapentin 300 mg 03/02/22 09:00 03/02/22 10:33 Gabapentin 300 Mg Capsule PO 300 mg TID HANH Administration Sodium Chloride 1,000 mls @ 50 mls/hr 03/01/22 09:00 03/02/22 05:46 Sodium Chloride 0.9% IV 100 mls/hr .Q20H HANH Administration Insulin Human Lispro 0 unit 03/01/22 07:06 03/02/22 07:52 Insulin Lispro 100 Unit/1 Ml SUBCUT Not Given Q8H HANH Protocol Metoprolol Tartrate 12.5 mg 03/01/22 21:00 03/02/22 08:55 Metoprolol Tartrate 25 Mg Tablet PO 12.5 mg BID@0900,2100 HANH Administration Pantoprazole Sodium 40 mg 03/02/22 10:00 03/02/22 10:32 Pantoprazole 40 Mg Sdv IVP 40 mg Q12H HANH Administration PFSH Acute PFSH: Medical History (Updated 03/02/22 @ 15:08 by Sly Velasquez MD) Arrhythmia Bilateral inguinal hernia BPH (benign prostatic hyperplasia) Diabetes Erectile dysfunction Hyperlipidemia Hypertension Nonsustained ventricular tachycardia Pacemaker Surgical History History of eyelid surgery Hx of cataract extraction Family History Sister Anesthesia complication Father CAD (coronary artery disease), Onset Age: 33 Dementia Grandfather Diabetes Denies family history of Clotting disorder Chronic kidney disease (CKD) Suicide Bleeding disorder Lung disease Cancer Stroke Social History Smoking and tobacco status: never smoked Alcohol intake: never Substance/Drug Use: never Lives independently: Yes Vitals/I&O/Wt Last Vital Signs Temp 97.8 F 03/02/22 13:58 Pulse 74 03/02/22 14:00 Resp 18 03/02/22 14:00 BP 101/54 03/02/22 14:00 Pulse Ox 98 03/02/22 14:00 03/01/22 03/02/22 03/02/22 22:59 06:59 14:59 Intake Total 1400 / 1500 1462 / 2962 950 / 950 Output Total 1100 / 1450 400 / 1850 400 / 400 Balance 300 / 50 1062 / 1112 550 / 550 Weight last 48 hrs Weight 113 lb 9.6 oz Weight 170 lb Physical Exam Narrative: GENERAL: In general he is alert, comfortable and feels well HEENT: Exam within normal limits. NECK: Supple without jugular vein distention. The carotid upstroke is normal without bruits. BACK: Exam normal. LUNGS: Clear. HEART: Regular rate and rhythm. ABDOMEN: Benign without organomegaly or tenderness. EXTREMITIES: No edema. NEUROLOGIC: Exam normal. SKIN: Unremarkable. Data : 03/02/22 04:25 03/02/22 04:25 A&P Assessment and plan (1) DM type 2 (diabetes mellitus, type 2): Status: Acute (2) ABHI (acute kidney injury): Status: Acute (3) Acute blood loss anemia: Status: Acute (4) Upper GI bleed: Status: Acute (5) Pacemaker: Status: Acute (6) Hypertension: Status: Acute Qualifiers: Hypertension type: essential hypertension Qualified Code(s): I10 - Essential (primary) hypertension (7) Hyperlipidemia: Status: Acute Qualifiers: Hyperlipidemia type: mixed hyperlipidemia Qualified Code(s): E78.2 - Mixed hyperlipidemia (8) Nonsustained ventricular tachycardia: Status: Acute Plan For now the episodes seem to have calmed down some. I am not going to treat him directly currently. His electrolytes are in order. Hopefully this was related to the bleeding. As things settle out I hope things will settle down. If not we can use intravenous lidocaine or even amiodarone if necessary but I will try to avoid those things. We will also look at his pacemaker report and the echo. 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
[2022-03-02 15:13] LABS: Glucose Point of Care 197 mg/dL (70-110)
[2022-03-02] MEDS: insulin lispro 100 unit/1 mL SUBCUT (15:20)
[2022-03-02] MEDS: gabapentin 300 mg Capsule PO ×2 (15:20→20:07)
[2022-03-02 15:49] LABS: Hematocrit 27.6 % (42.0-52.0); Hemoglobin 9.2 g/dL (11.7-16.6)
--- NOTE | 2022-03-02 20:00 | PC.NURSE ---
Ambulation Patient ambulated from room to the other side of the unit and back with a walker and standby assist x1 nurse. Patient tolerated activity well, all vitals remained stable.
[2022-03-02 22:49] LABS: Glucose Point of Care 133 mg/dL (70-110)
[2022-03-02] MEDS: sodium chloride 0.9% 1,000 ML 50 ML IV (23:45)
[2022-03-03] VITALS (23 sets, daily range): BP systolic 95–146; BP diastolic 51–76; PULSE 58–109; RESP 11–25; TEMP 36.4–36.7; O2SAT 95–100; BMI 15.1
[2022-03-03 04:45] LABS: Basophils % 0.7 %; Eosinophils # 0.2 10^3/uL (0.0-0.8); Eosinophils % 3.6 %; Hematocrit 28.1 % (42.0-52.0); Hemoglobin 9.3 g/dL (11.7-16.6); Lymphocytes # 1.8 10^3/uL (0.8-4.8); Lymphocytes % 29.5 %; Mean Corpuscular HGB Conc 33.1 g/dL (30.0-36.0); Mean Corpuscular Volume 96.6 fl (80-94); Mean Platelet Volume 10.3 fL (7.4-10.4); Monocytes # 0.7 10^3/uL (0.2-0.9); Monocytes % 11.3 %; Neutrophils # 3.29 10^3/uL (1.8-7.7); Neutrophils % 54.6 %; Nucleated Red Blood Cells % 0 %; Platelet Count 157 10^3/cmm (130-400); Red Blood Count 2.91 10^6/uL (4.1-5.3); Red Cell Distribution Width 14.7 % (12.1-15.1)
[2022-03-03 05:07] LABS: Alanine Aminotransferase 35 U/L (0-41); Albumin Level 3.1 g/dL (3.5-5.2); Alkaline Phosphatase 43 IU/L (40-130); Anion Gap 11.3 (5-19); Aspartate Amino Transferase 41 U/L (0-40); Blood Urea Nitrogen 30 mg/dL (8-23); Calcium 8.5 mg/dL (8.5-10.5); Carbon Dioxide 22 mmol/L (22-29); Chloride 108 mmol/L (98-107); Globulin 1.4 g/dL (1.3-4.6); Glucose 150 mg/dL (65-115); Osmolality Calculated 293 mOsm/kg (285-295); Potassium 4.3 mmol/L (3.5-5.1); Sodium 137 mmol/L (136-145); Total Bilirubin 0.3 mg/dL (0.15-1.2); Total Protein 4.5 g/dL (6.6-8.7)
[2022-03-03] MEDS: insulin lispro 100 unit/1 mL SUBCUT (06:27)
[2022-03-03 06:47] LABS: Glucose Point of Care 148 mg/dL (70-110)
--- NOTE | 2022-03-03 07:35 | P.PN_ITS ---
Subjective Subjective: Mr. Gamez has had no further runs of ventricular tachycardia. He has some occasional PVCs and is 100% paced. He feels well. His echo revealed mild overall decrease in his left ventricular function. See the report for the details. Medications: Reviewed: Yes Vitals/I&O/Wt Last Vital Signs Temp 97.6 F 03/03/22 04:00 Pulse 109 H 03/03/22 06:30 Resp 25 H 03/03/22 06:30 BP 109/51 03/03/22 06:30 Pulse Ox 98 03/03/22 06:00 03/02/22 03/03/22 03/03/22 22:59 06:59 14:59 Intake Total 1600 / 2900 600 / 3500 Output Total 800 / 1200 1525 / 2725 Balance 800 / 1700 -925 / 775 Weight last 48 hrs Weight 111 lb 9.6 oz Weight 113 lb 9.6 oz Physical Exam Narrative: GENERAL: In general he is awake and alert HEENT: Exam within normal limits. NECK: Supple without jugular vein distention. The carotid upstroke is normal without bruits. BACK: Exam normal. LUNGS: Clear. HEART: Regular rate and rhythm. ABDOMEN: Benign without organomegaly or tenderness. EXTREMITIES: No edema. NEUROLOGIC: Exam normal. SKIN: Unremarkable. Data : 03/03/22 04:15 03/03/22 04:15 A&P Assessment and plan (1) Nonsustained ventricular tachycardia: Status: Acute (2) DM type 2 (diabetes mellitus, type 2): Status: Acute (3) ABHI (acute kidney injury): Status: Acute (4) Acute blood loss anemia: Status: Acute (5) Upper GI bleed: Status: Acute (6) Pacemaker: Status: Acute (7) Hypertension: Status: Acute Qualifiers: Hypertension type: essential hypertension Qualified Code(s): I10 - Essential (primary) hypertension (8) Hyperlipidemia: Status: Acute Qualifiers: Hyperlipidemia type: mixed hyperlipidemia Qualified Code(s): E78.2 - Mixed hyperlipidemia Plan No further action necessary at this time. I explained this to the patient. I would continue the beta-abel. Could go out of the ICU today Attestations Medical Necessity Statement*: Hospital stay required for continued management of a life-threatening gastrointestinal bleeding episode. Coding Level of Care Code Established Pt Acute Manager Ethics for Chg Fwd Patient Type Established History Detailed Exam Detailed Medical Decision Making Moderate Complexity Diagnoses Nonsustained ventricular tachycardia I47.2 DM type 2 (diabetes mellitus, type 2) E11.9 ABHI (acute kidney injury) N17.9 Acute blood loss anemia D62 Upper GI bleed K92.2 Pacemaker Z95.0 Hypertension I10 Hypertension type: essential hypertension Hyperlipidemia E78.2 Hyperlipidemia type: mixed hyperlipidemia Time Spent (min) 30
[2022-03-03] MEDS: finasteride 5 mg Tablet PO (08:22)
[2022-03-03] MEDS: gabapentin 300 mg Capsule PO (08:23)
[2022-03-03] MEDS: metoprolol tartrate 25 mg Tablet 12.5 MG PO (08:24)
[2022-03-03] MEDS: polyethylene glycol 3350 Pkt 17 gm PO (09:37)
[2022-03-03] MEDS: docusate sodium 100 mg Capsule PO (09:37)
[2022-03-03] MEDS: pantoprazole 40 mg SDV IVP (09:39)
--- NOTE | 2022-03-03 10:53 | PC.NURSE ---
Patient ambukated in [place]. Approximately 150 feet with walker. Nurse was standby only, no assistance needed form nurse. Patient reports that he feels more energetic than yesterday and ambulation is easier.
--- NOTE | 2022-03-03 12:02 | PM.DCS ---
Discharge Providers Date of Admission: 03/01/22 07:06 Date of Discharge: March 03, 2022 Attending Provider at Admission: Thomas Singh Attending Provider at Discharge: Wil Ma MD Primary Care Provider: Juan Alberto Holloway RN, TRANSMISSION SUPERINTENDENT Diagnoses at Discharge Discharge Diagnosis (1) Nonsustained ventricular tachycardia: Status: Acute (2) DM type 2 (diabetes mellitus, type 2): Status: Acute (3) ABHI (acute kidney injury): Status: Acute (4) Acute blood loss anemia: Status: Acute (5) Upper GI bleed: Status: Acute (6) Pacemaker: Status: Acute (7) Hypertension: Status: Acute Qualifiers: Hypertension type: essential hypertension Qualified Code(s): I10 - Essential (primary) hypertension (8) Hyperlipidemia: Status: Acute Qualifiers: Hyperlipidemia type: mixed hyperlipidemia Qualified Code(s): E78.2 - Mixed hyperlipidemia Reason for Visit Reason for Visit: N\V\ [facility] Course Hospital Course This is a 76-year-old gentleman with history of LBBB, arrhythmia, status post PPM, HTN, HLD, diabetes, came to the hospital due to multiple episodes of coffee-ground emesis, melanotic stools starting at 7 PM on Saturday night, gradually became very weak, tremulous, diaphoretic, presyncopal. Patient was admitted to acute blood loss anemia, secondary to upper GI bleed, with hemodynamic compromise, requiring ICU admission, 2 units PRBC, fluid resuscitation, Protonix, EGD demonstrated ulcer at gastroesophageal junction. Patient was clinically monitored in the ICU, hemodynamically stable, hemoglobin stable, ambulating without significant symptomatology. Hemoglobin discharge was 9.3, INR 1.26. Patient was advised to hold aspirin for at least 2 weeks. Recheck hemoglobin in 1 week through primary care. Monitor for recurrent symptoms if so go to emergency room. Avoid all nonsteroidal anti-inflammatory drugs. During his hospitalization he had episodes of nonsustained V. tach, and PVCs, has a pacemaker in place, 100% paced, echocardiogram There is probably mild overall global ?hypokinesis.? A rough estimate of the ejection fraction would be 40%.? Grade 2 diastolic dysfunction., Cardiology consulted, conservatively managed with metoprolol, discharged on metoprolol 12.5 twice daily. Physical Exam Const: COMMON NORMALS: no acute distress and patient oriented x3 Resp: COMMON NORMALS: normal respiratory effort, No retractions, No use of accessory muscles and clear to auscultation bilaterally AUSCULTATION: clear to auscultation bilaterally Cardio: COMMON NORMALS: regular rate, regular rhythm, S1 normal heart sound present and S2 normal heart sound present RATE: regular rate RHYTHM: regular rhythm HEART SOUNDS: S1 normal heart sound present and S2 normal heart sound present GI: COMMON NORMALS: Normal to inspection, nondistended, normoactive bowel sounds present, Soft to palpation and non-tender PALPATION: Yes Soft to palpation Extremity: COMMON NORMALS: no pedal edema Neuro: COMMON NORMALS: patient oriented x3 Psych: COMMON NORMALS: mental status grossly normal Discharge Data Studies Completed and Pending Completed Studies During Hospitalization Category Date Time Status CXRP [XR chest 1V portable [id number]] Stat Exams 03/01/22 05:26 Completed CV. echo complete* [id number] Routine Ultrasound 03/02/22 10:27 Completed Pending at discharge Category Date Time Status Complete Blood Count w/Auto AM LABS Lab 03/04/22 04:00 Ordered Comprehensive Metabolic Panel AM LABS Lab 03/04/22 04:00 Ordered Radiology Impressions Chest X-Ray 03/01/22 05:26 IMPRESSION: Interval resolution of right pleural fluid collection. Laboratory Results WBC 6.0 10^3/uL (4.0-10.0) 03/03/22 04:15 RBC 2.91 10^6/uL (4.1-5.3) L 03/03/22 04:15 Hgb 9.3 g/dL (11.7-16.6) L 03/03/22 04:15 Hct 28.1 % (42.0-52.0) L 03/03/22 04:15 MCV 96.6 fl (80-94) H 03/03/22 04:15 MCH 32.0 pg (28.0-34.0) 03/03/22 04:15 MCHC 33.1 g/dL (30.0-36.0) 03/03/22 04:15 RDW 14.7 % (12.1-15.1) 03/03/22 04:15 Plt Count 157 10^3/cmm (130-400) 03/03/22 04:15 MPV 10.3 fL (7.4-10.4) 03/03/22 04:15 Neut % (Auto) 54.6 % 03/03/22 04:15 Lymph % (Auto) 29.5 % 03/03/22 04:15 [place] % (Auto) 11.3 % 03/03/22 04:15 Eos % (Auto) 3.6 % 03/03/22 04:15 Baso % (Auto) 0.7 % 03/03/22 04:15 Neut # (Auto) 3.29 10^3/uL (1.8-7.7) 03/03/22 04:15 Lymph # (Auto) 1.8 10^3/uL (0.8-4.8) 03/03/22 04:15 [place] # (Auto) 0.7 10^3/uL (0.2-0.9) 03/03/22 04:15 Eos # (Auto) 0.2 10^3/uL (0.0-0.8) 03/03/22 04:15 Baso # (Auto) 0.0 10^3/uL (0.0-0.1) 03/03/22 04:15 Nucleated RBC % (auto) 0 % 03/03/22 04:15 Nucleated RBCs # 0.0 /100WBC 03/03/22 04:15 PT 16.20 SECONDS (12.1-14.9) H 03/01/22 04:54 INR 1.26 (0.8-1.2) H 03/01/22 04:54 Sodium 137 mmol/L (136-145) 03/03/22 04:15 Potassium 4.3 mmol/L (3.5-5.1) 03/03/22 04:15 Chloride 108 mmol/L (98-107) H 03/03/22 04:15 Carbon Dioxide 22 mmol/L (22-29) 03/03/22 04:15 Anion Gap 11.3 (5-19) 03/03/22 04:15 BUN 30 mg/dL (8-23) H 03/03/22 04:15 Creatinine 1.0 mg/dL (0.7-1.2) 03/03/22 04:15 GFR Calculation Not Reportable 03/03/22 04:15 Glucose 150 mg/dL (65-115) H 03/03/22 04:15 POC Glucose 148 mg/dL (70-110) H 03/03/22 06:20 Calculated Osmolality 293 mOsm/kg (285-295) 03/03/22 04:15 Calcium 8.5 mg/dL (8.5-10.5) 03/03/22 04:15 Magnesium 2.0 mg/dL (1.7-2.3) 03/02/22 04:25 Total Bilirubin 0.3 mg/dL (0.15-1.2) 03/03/22 04:15 AST 41 U/L (0-40) H 03/03/22 04:15 ALT 35 U/L (0-41) 03/03/22 04:15 Alkaline Phosphatase 43 IU/L (40-130) 03/03/22 04:15 Total Protein 4.5 g/dL (6.6-8.7) L 03/03/22 04:15 Albumin 3.1 g/dL (3.5-5.2) L 03/03/22 04:15 Globulin 1.4 g/dL (1.3-4.6) 03/03/22 04:15 Lipase 16 U/L (13-60) 03/01/22 04:54 TSH 3.72 uIU/mL (0.27-4.20) 03/02/22 04:25 Blood Type O Negative 03/01/22 04:54 Rho(D) Type Negative 03/01/22 04:54 Antibody Screen Negative 03/01/22 04:54 Crossmatch See Detail 03/01/22 04:54 Vitals Last Vital Signs Temp 98.1 F 03/03/22 08:30 Pulse 72 03/03/22 10:30 Resp 22 H 03/03/22 10:30 BP 115/66 03/03/22 10:30 Pulse Ox 99 03/03/22 10:30 Discharge Plan Discharge Patient Disposition: Home Condition: Stable Prescriptions: New metoprolol tartrate 25 mg Tablet 12.5 mg PO BID@0900,2100 30 Days Qty: 30 0RF polyethylene glycol 3350 17 gram Powder In Packet 17 g PO DAILY 30 Days 0RF pantoprazole [Protonix] 40 mg tablet,delayed release (DR/EC) 40 mg PO BID 30 Days Qty: 60 0RF sucralfate [Carafate] 1 gram tablet 1 g PO BID 28 Days Qty: 56 0RF Continued metformin 1,000 mg tablet 1,000 mg PO BID 0RF cetirizine 10 mg tablet 10 mg PO QPM 0RF fluticasone propionate [Flonase Allergy Relief] 50 mcg/actuation spray,suspension 2 spray INTRANASAL DAILY PRN (Reason: Allergy Symptoms) 0RF Rx Instructions: administer into each nostril finasteride 5 mg tablet 5 mg PO BEDTIME 0RF tamsulosin 0.4 mg capsule 0.8 mg PO BEDTIME 0RF primidone 50 mg tablet 50 mg PO QID 0RF Pro Fe 180 mg iron capsule 180 mg PO BID 0RF Rx Instructions: take with vit c 500mg cholecalciferol (vitamin D3) 25 mcg (1,000 unit) capsule 25 mcg PO DAILY 0RF zinc 50 mg tablet 50 mg PO DAILY 0RF Jardiance 25 mg tablet 25 mg PO QAM 0RF rosuvastatin 10 mg tablet 10 mg PO DAILY 0RF glipizide 5 mg tablet 5 mg PO DAILY PRN (Reason: unknown) 0RF promethazine-DM 6.25-15 mg/5 mL syrup 5 ml PO Q4H PRN (Reason: Cough) 0RF nystatin 100,000 unit/mL suspension 7.5 ml PO QID PRN (Reason: till clear) 0RF Rx Instructions: swish and gargle tizanidine 4 mg tablet 4 mg PO TID PRN (Reason: Muscle Spasm) 0RF fluconazole 150 mg tablet 150 mg PO .EVERY 3 DAYS 0RF tramadol 50 mg tablet 50 mg PO Q4H PRN (Reason: Pain) 0RF Vitamin C 500 mg Tablet 500 mg PO BID 0RF gabapentin 300 mg Capsule 300 mg PO TID 0RF furosemide 20 mg tablet 20 mg PO DAILY PRN (Reason: Edema) 0RF albuterol sulfate 90 mcg/actuation HFA aerosol inhaler 2 puff INHALATION Q4H PRN (Reason: Shortness Of Breath) 0RF Metanx 3-35-2 mg Tablet 1 tab PO BID 0RF Held aspirin [Adult Low Dose Aspirin] 81 mg tablet,delayed release (DR/EC) 81 mg PO QPM 0RF Hold Instructions: Resume on 03/19/22. Discontinued propranolol 20 mg tablet 40 mg PO BID 0RF losartan 100 mg tablet 100 mg PO QAM 0RF Discharge Orders: Discharge Order (Routine); Ordered 03/03/22 Ordered By: Wil Ma Referrals: Juan Alberto Holloway RN, TRANSMISSION SUPERINTENDENT [Primary Care Provider] - Discharge Diet: GI Soft Discharge Activity: Resume usual activity Patient Instructions: GI Discharge Instructions, Opioid Safety Activity Restrictions/Additional Instructions: -If you have recurrent lightheadedness, dizziness, bloody or black stools, or bloody vomit go to the emergency room -Please hold aspirin for at least 2 weeks -Please avoid nonsteroidal anti-inflammatory drugs such as naproxen, Aleve, ibuprofen -Advance diet as tolerated Discharge Attestations Time Spent in Discharge Care*: less than 30 min Quality Metrics Clinical Quality Measures [ No reported AMI, CVA or VTE this stay] Coding Level of Care Code Acute Chg FW DC note Diagnoses Nonsustained ventricular tachycardia I47.2 DM type 2 (diabetes mellitus, type 2) E11.9 ABHI (acute kidney injury) N17.9 Acute blood loss anemia D62 Upper GI bleed K92.2 Pacemaker Z95.0 Hypertension I10 Hypertension type: essential hypertension Hyperlipidemia E78.2 Hyperlipidemia type: mixed hyperlipidemia
[2022-03-03 12:12] LABS: Glucose Point of Care 186 mg/dL (70-110)
--- NOTE | 2022-03-03 13:41 | PC.NURSE ---
Discharged patient. Reviewed new medications, activity instruction, and follow up appointments. Patient signature form signed. Took patient out via wheelchair picked up by daughters.
== END 2022-03-03 13:43 | disposition home or self-care (01) | DRG 378 ==
LOC: ER 05:26 → ICU 06:20
PROVIDERS: Internal Medicine; Surgery; Admitting Provider Internal Medicine; Emergency Provider Emergency Medicine; PCP Nurse Practitioner Family; Visit Provider Family Medicine
PROC: 0DJ08ZZ Inspection of Upper Intestinal Tract, Via Natural or Artificial Opening Endoscopic (ICD-10-PCS; CPT 43235; principal; 2022-03-01 10:30)
DX: K25.4 Chronic or unspecified gastric ulcer with hemorrhage (principal); N17.9 Acute kidney failure, unspecified; D62 Acute posthemorrhagic anemia; I47.2 Ventricular tachycardia; Z95.0 Presence of cardiac pacemaker; I95.9 Hypotension, unspecified; I10 Essential (primary) hypertension; E78.2 Mixed hyperlipidemia; E11.9 Type 2 diabetes mellitus without complications; K40.20 Bilateral inguinal hernia, without obstruction or gangrene, not specified as recurrent; Z79.84 Long term (current) use of oral hypoglycemic drugs
CPT/HCPCS: 36415; 36416; 36430; 43235; 71045; 80048; 80053; 82962; 83690; 83735; 84443; 85014; 85018; 85025; 85610; 86850; 86900; 86920; 93005; 93306; 96365; 96366; 96372; 96375; 99291; C9113; J1815; J2405; J2704; J3490; J7030; P9016

== ENCOUNTER → 2022-11-16 09:11 | Outpatient (BNVA) | payer MEDICARE, SELFPAY | PROVIDERS: PCP Nurse Practitioner Family; Visit Provider Internal Medicine Cardiovascular Disease | DX: Z45.010 Encounter for checking and testing of cardiac pacemaker pulse generator [battery] (principal) | CPT/HCPCS: 93280 ==

== ENCOUNTER 2023-05-02 10:17 | Outpatient (CLI) | payer MEDICARE, SELFPAY ==
--- NOTE | 2023-05-02 10:39 | XR_ITS ---
WS: [id number] Exam: XR chest 2V* [id number] Date/Time of Exam: 05/02/2023 10:40 AM Reason For Exam: ACUTE COUGH Comparison 03/01/2022. The lungs are clear and fully expanded. Cardiomediastinal silhouette is unremarkable. A permanent car diac pacer superimposes the left chest. No pleural effusion. Bony structures are intact. XR/XR chest 2V* [id number] IMPRESSION: 1. No acute cardiopulmonary finding.
== END 2023-05-02 10:18 | disposition home or self-care (01) ==
PROVIDERS: PCP Nurse Practitioner Family; Visit Provider Nurse Practitioner Family
DX: R05.1 Acute cough (principal)
CPT/HCPCS: 71046

== ENCOUNTER → 2023-05-14 13:14 | Outpatient (BNVA) | payer MEDICARE, SELFPAY | PROVIDERS: PCP Nurse Practitioner Family; Visit Provider Internal Medicine Cardiovascular Disease | DX: I10 Essential (primary) hypertension (principal); E11.9 Type 2 diabetes mellitus without complications; Z95.0 Presence of cardiac pacemaker; E78.2 Mixed hyperlipidemia; Z79.84 Long term (current) use of oral hypoglycemic drugs | CPT/HCPCS: 99214 ==

== ENCOUNTER → 2024-05-28 11:05 | Outpatient (BNVA) | payer MEDICARE, SELFPAY | PROVIDERS: PCP Nurse Practitioner Family; Visit Provider Internal Medicine Cardiovascular Disease | DX: R53.83 Other fatigue (principal); E78.2 Mixed hyperlipidemia; I10 Essential (primary) hypertension; Z95.0 Presence of cardiac pacemaker; E11.9 Type 2 diabetes mellitus without complications; Z79.84 Long term (current) use of oral hypoglycemic drugs | CPT/HCPCS: 99214 ==

== ENCOUNTER 2024-11-20 07:44 | Outpatient (CLI) | payer MEDICARE, SELFPAY ==
--- NOTE | 2024-11-20 07:45 | USCV_ITS ---
Jefferson Gamez Age: 79 Gender: M : 1945 Exam Date: 11/20/2024 08:24 Ordering Phys: Sly Velasquez MD ([email or web address]) Technologist: [place] [facility] [place]: CAD BP: 146 / 84 HR: 59 Rhythm: Sinus Technical Quality: Adequate MEASUREMENTS (Male / Female) Normal Values 2D ECHO LVOT Diameter 2.2 cm LV Ejection Fraction MOD 4C 12.6 % LV Ejection Fraction MOD 2C 16.0 % LV Ejection Fraction 2C AL 17.2 % LA Diameter 4.9 cm RA Systolic Volume 4C AL 79.2 ml RA Systolic Volume 4C MOD 70.9 ml LA Sys Volume AL 86.2 cm cubed LA Sys Volume Index AL 42.9 cm cubed/m squared Aorta at Sinotubular Diameter 2.4 cm IVC Diameter 1.8 cm M-MODE LA Ao Ratio MM 1.6 AV Cusp Separation MM 1.9 cm DOPPLER AV Peak Velocity 111.0 cm/s LVOT Peak Velocity 59.0 cm/s AV Area Cont Eq vti 2.3 cm squared AV Area Cont Eq pk 2.1 cm squared MV Peak Velocity 81.0 cm/s MV Area PHT 2.5 cm squared Mitral E to A Ratio 1.9 TV Peak Velocity 257.5 cm/s TR Peak Velocity 286.5 cm/s TR Peak Gradient 32.8 mmHg TR Mean Velocity 223.0 cm/s TR Mean Gradient 22.1 mmHg TR Velocity Time Integral 85.5 cm TV Peak E Velocity 59.0 cm/s PV Peak Velocity 56.0 cm/s FINDINGS Left Ventricle Left ventricle is normal size. LV systolic function is severely reduced with EF of 10-15%. Severe global hypokinesis Right Ventricle Grossly normal. Pacemaker lead seen. Right Atrium Dilated. Pacemaker lead seen. Left Atrium Dilated Mitral Valve Structurally normal mitral valve. Mild mitral regurgitation. Aortic Valve Grossly normal. No significant stenosis or regurgitation. Tricuspid Valve Insufficient TR jet to evaluate RVSP. Pulmonic Valve Not well visualized Pericardium Normal Aorta Normal in size IVC Appears to be normal CONCLUSIONS LV systolic function severely reduced with EF of 10 to 15%. Pacemaker lead seen in right ventricle and right atrium Biatrial dilation Mild mitral regurgitation Compared to prior echocardiogram from 2021, LV systolic function has declined significantly. Willard Tong MD (Electronically Signed) Final Date: 21 November 2024 19:14 S
== END 2024-11-20 07:45 | disposition home or self-care (01) ==
LOC: RAD 07:46
PROVIDERS: PCP Nurse Practitioner Family; Visit Provider Internal Medicine Cardiovascular Disease
DX: R53.83 Other fatigue (principal); I50.20 Unspecified systolic (congestive) heart failure; I51.7 Cardiomegaly; Z95.0 Presence of cardiac pacemaker
CPT/HCPCS: 93306

== ENCOUNTER → 2024-11-23 14:47 | Outpatient (BNVA) | payer MEDICARE, SELFPAY | PROVIDERS: PCP Nurse Practitioner Family; Visit Provider Internal Medicine Cardiovascular Disease | DX: R07.9 Chest pain, unspecified (principal); Z79.01 Long term (current) use of anticoagulants; R06.02 Shortness of breath; I50.9 Heart failure, unspecified; N18.9 Chronic kidney disease, unspecified | CPT/HCPCS: 36415; 80048; 83880; 84443; 85025; 93005; 99215 ==

== ENCOUNTER 2024-12-03 07:30 | Outpatient (CLI) | payer MEDICARE, SELFPAY ==
[2024-12-03] VITALS (15 sets, daily range): BP systolic 92–116; BP diastolic 55–76; PULSE 60–70; RESP 9–25; TEMP 36.6–37; O2SAT 70–99; BMI 23.7
--- NOTE | 2024-12-03 07:30 | XACV_ITS ---
Ht: 183 cm Wt: 79 kg BSA: 2.01 m2 Gender: Male : 1945 Any Known Allergies: Penicillins Exam Priority: Routine Indication(s): - Cardiomyopathy - CHF Procedure(s): Procedure Description: Diagnostic procedure Procedure Description: Left Heart Catheterization Procedure Description: Left ventriculography Procedure Description: Coronary Angiography Rafa GALVAN; Diagnostic Cath Status: Elective Diagnostic Findings * The left main is a medium caliber vessel with no significant stenotic lesions. * The left artery descending artery is a medium to large caliber vessel with a minimal intimal irregularities . The artery appeared to wraparound the LV apex. No significant stenotic lesions were noted. It gives of 2 medium caliber diagonal branches. The second diagonal branch was found to have a 30% ostial narrowing. No significant stenotic lesions.. * The left circumflex artery is a medium caliber nondominant vessel with no significant stenotic lesions. Minimal intimal irregularities are noted throughout the vessel. * The right coronary artery is a medium caliber dominant vessel which also was found to have mild diffuse disease in the proximal segment of 20 to 30%. No significant stenotic lesions were noted. Conclusions 1. 79-year-old white male with history of diabetes, dyslipidemia, symptomatic bradycardia, status post permanent pacemaker plantation, recently with progressive shortness of breath. He was found to have an LV ejection fraction of around 10 to 15%. This was a significant drop from the previous examination. For further evaluation of his cardiac status, a cardiac catheterization was recommended. Patient underwent left heart catheterization with left and right coronary angiogram and LV angiogram today. The findings are as follows.. 2. Mild diffuse coronary artery disease. LV gram revealing severe diffuse hypokinesia of the left ventricle. Mildly dilated LV cavity. LV ejection fraction around 15 to 20%. LVEDP of 8 mmHg. Diagnostic RX Recommendation: medical therapy and/or counseling LV EDP: 8 mmHg Ventriculography Ejection Fraction: 15.0 % Left Ventriculography Findings: * There are exam was performed in the CARVAJAL projection. The LV cavity appears to be mildly dilated. The study was a suboptimal quality. The overall ejection fraction was found around 15 -20%. The LVEDP was 8 mmHg. Pressures Phase:Rest AO : / ( 0 ) @ 8:59:00 AM / ( 0 ) @ 9:07:00 AM 71 / 41 ( 50 ) @ 9:09:00 AM 72 / 44 ( 54 ) @ 9:09:00 AM 74 / 44 ( 54 ) @ 9:10:00 AM 94 / 55 ( 70 ) @ 9:13:00 AM 183 / 41 ( 84 ) @ 9:23:00 AM 78 / 51 ( 64 ) @ 9:23:00 AM 92 / 51 ( 66 ) @ 9:29:00 AM 92 / 50 ( 66 ) @ 9:29:00 AM LV : 76 / 5 / 8 @ 9:27:00 AM 87 / 9 / 12 @ 9:29:00 AM 89 / 8 / 12 @ 9:29:00 AM Valves Phase:DefaultPhase AV : 1.0 @ 9:38:16 AM AV Mean Gradient: 0.0 @ 9:38:16 AM Clinical Evaluation EBL: 5mL-10mL Procedural Details Procedure Consent Obtained. Pre-Procedure Time Out. Identified patient by full name and date of as verbalized by the patient/guarantor. Does the consent match the physician's order: Yes. Accurate & Complete Informed Consent: Yes. Inpatient/Outpatient History & Physical on Chart: Yes. If H&P is completed, is and addenduem needed: No; If yes, is the addendum complete: N/A. Visualize and Verify Site with Patient/Guarantor: N/A. Relevant Radiology Images available: N/A. The risks, benefits, and alternatives of sedation and/or procedure were discussed by physician. The patient agrees to continue. Procedure started. [facility] Clinical Fraility Score: 3: Managing Well. Staff Command And Control Officer Indications: Cardiomyopathy. Chest Pain Symptom Assessment: Typical Angina Symptoms. Cardiovascular Instability: No. Correct patient, site and procedure confirmed by cath team. Current diagnosis: Cardiomyopathy; CHF. PERRLA. Strong, equal hand children's service supervisor bilaterally. Lungs clear x 5 lobes. IV Site on Arrival: 20 gauge in the right anticubital. IV Fluids: 0.9% NaCl at KVO. 0 mL infused prior to microbiological lab technician. Pre Procedural Pulses: bilateral posterior tibial was 1+. Pre Procedural Pulses: bilateral dorsalis pedis was 3+. Pre Procedural Pulses: bilateral radial was 3+. Oxygen started at 3liters/min via nasal canula. right groin was prepped with chloroprep then draped in the usual sterile fashion. right radial was prepped with chloroprep then draped in the usual sterile fashion. Physician notified. Baseline sample Acquired. HR: 61 BPM. Physician arrived. Family updated by MD prior to the start of the procedure. Physician scrubbed in. Immediate Pre-Procedure Time Out. Correct Patient: Yes; Correct Procedure: Yes; Correct Site: Yes; Correct Patient Position: Yes; Correct Supplies: Yes; Dried Flammable Prep: Yes; Blood Products Available: N/A;. Lidocaine 1% infiltrated to the right radial. Arterial access obtained. A 5 bangladeshi Mina catheter in over wire. Catheter removed over the exchange wire. A 5 bangladeshi TIG catheter in over wire. Multiple views taken of left coronary artery. Catheter redirected to the RCA. Catheter removed over the exchange wire. A 5 bangladeshi JR4 catheter in over wire. Multiple views taken of right coronary artery. Catheter removed over the exchange wire. A 5 bangladeshi Angled Pig catheter in over wire. EDP Sample taken: LV 76/5,8; HR: 76 BPM; SpO2: 98%. LV gram performed in CARVAJAL @ 10 mL/second for a total of 30 mL. Patient EF: Abnormal. EDP Sample taken: LV 87/9,12; HR: 69 BPM; SpO2: 98%. Pullback taken: LV 89/8,12; AO 92/51(66); Mean: 0mmHg, Peak to Peak: 1mmHg, SEP: 11sec/min; HR: 69 BPM; SpO2: 99%. [id number]. Contrast type used: Omnipaque 300 mg/mL, 150 mL bottle. Catheter removed over the exchange wire. Physcian review of films. Physician scrubbed out. Post-op diagnosis: Non Ischemic Cardiomyopathy. A TR Band was successful obtaining hemostatsis at the Right Radial artery insertion site. TR band placed. Hemostasis obtained. Post Procedure: Pulses reassessed and unchanged. PERRLA. Strong, equal hand children's service supervisor bilaterally. No VTE prophylaxis required. Medication waste Lidocaine 18 ml Nitro- 49.8 mg Heparin- 1000 units Versed- 1 mg Fentanyl 75 mcg. Total IV fluids: 300 mL. Fluoro: 9:06. Complications: None. Estimated blood loss: 5mL-10mL. Responsiveness - Normal response to verbal stimuli; alert and oriented, PERRLA. Airway - Unaffected, no intervention required; spontaneous ventilation. Circulation: W/N/L, pulses unchanged. Nausea/Vomiting: No. Procedure completed. Patient transferred by bed to 1st floor. Vital chart was stopped. Current Diagnosis : Chest Pain. Admit Source: Out Patient. Access Site Site: Right Radial artery Sheath Size: 6 Fr Hemostasis Method: TR Band Hemostasis Success: Successful Procedure Medications Start: 8:58 AM Stop: 8:58 AM Medication: Versed 1 mg and Fentanyl 25 mcg Amount: 1 Route: I.V. Start: 9:04 AM Stop: 9:04 AM Medication: 0.9% Saline Amount: 250 ml Route: I.V. bolus Start: 9:04 AM Stop: 9:04 AM Medication: Nitrogylcerin Amount: 200 mcg Route: I.A. Start: 9:11 AM Stop: 9:11 AM Medication: Neosynephrine Amount: 25 mcg Route: I.V. Start: 9:06 AM Stop: 9:06 AM Medication: Heparin Amount: 5000 units Route: I.V. Start: 9:16 AM Stop: 9:16 AM Medication: Neosynephrine Amount: 25 mcg Route: I.V. I, the attending physician, have reviewed and verified all procedure medications. Yes, all medications given per verbal order History/Risk Factors Hypertension: Yes Dyslipidemia: Yes Peripheral Arterial Disease (PAD): No Myocardial Infarction (TN): No Obesity: No Renal Disease: No Tobacco Use: Never Prior Interventions PCI: No CABG: No Valve Surgery: No Report Signatures Finalized by Dr Vamsi Craig MD LOCATED WITHIN [facility] on 12/03/2024 10:25 PM
[2024-12-03 08:19] LABS: Basophils % 0.5 %; Eosinophils # 0.2 10^3/uL (0.0-0.8); Eosinophils % 2.4 %; Hematocrit 44.2 % (37-53); Lymphocytes % 33.1 %; Mean Corpuscular Hemoglobin 30.4 pg (27-33); Mean Corpuscular Volume 92.1 fl (82-101); Mean Platelet Volume 10.1 fL (7.4-10.4); Monocytes # 0.8 10^3/uL (0.2-0.9); Monocytes % 12.4 %; Neutrophils # 3.15 10^3/uL (1.8-7.7); Neutrophils % 51.4 %; Nucleated Red Blood Cells % 0 %; Platelet Count 197 10^3/cmm (157-399); Red Cell Distribution Width 13.1 % (12.1-15.1); White Blood Count 6.13 10^3/uL (3.29-11.43)
[2024-12-03] MEDS: aspirin 325 mg Tablet PO (08:20)
[2024-12-03] MEDS: diphenhydrAMINE 50 mg Capsule PO (08:20)
--- NOTE | 2024-12-03 08:28 | W.PM.OPSUD ---
Surgery/Procedure H&P Update DATE OF PROCEDURE: December 03, 2024 DATE H&P PERFORMED: 11/23/24 H&P UPDATE INFORMATION: I have reviewed H&P completed within last 30 days, I have examined patient prior to procedure and No changes to prior documentation PREOP DIAGNOSIS: Cardiomyopathy and congestive heart failure PRIMARY INDICATION FOR PROCEDURE: Severe LV systolic dysfunction, LV ejection fraction of 10 to 15%. History of hypertension, type 2 diabetes and dyslipidemia. Status post permanent pacer implantation for symptomatic bradycardia. PLANNED PROCEDURE: Operation Date: 12/03/24 08:30 Proposed Procedures p Cardiac Catheterization(Left) - Vamsi Craig MD PATIENT REASSESSED PRIOR TO SEDATION, WITH NO CHANGE NOTED: Yes PHYSICAL EXAM: alert, oriented x 3, clear to auscultation bilaterally and regular rate & rhythm AIRWAY EVAL/ANESTHESIA PLAN: normal airway, see other exam findings, ASA III, Monitored Anesthesia, Local Anesthesia, Risks, benefits & alternatives of sedation and/or procedure discussed and Patient agrees to continue as planned
[2024-12-03 08:37] LABS: Anion Gap 18.3 (5-19); Blood Urea Nitrogen 38 mg/dL (8-23); Calcium 9.5 mg/dL (8.5-10.5); Carbon Dioxide 23 mmol/L (22-29); Chloride 100 mmol/L (98-107); Glucose 176 mg/dL (65-115); Osmolality Calculated 297 mOsm/kg (285-295); Potassium 4.3 mmol/L (3.5-5.1); Sodium 137 mmol/L (136-145)
--- NOTE | 2024-12-03 09:43 | PM.OP ---
Operative Report Date of procedure: December 03, 2024 Pre-op diagnosis: Cardiomyopathy and congestive heart failure Post-op diagnosis: Nonischemic cardiomyopathy and congestive heart failure Post-op findings: Mild coronary artery disease Procedure done: Left heart catheterization with left and right coronary angiogram and LV angiogram Implants: None Specimens removed/disposition: None Surgeon: Vamsi Craig MD Anesthesia: MAC Procedure: The patient was found to have minimal intimal irregularities of the coronary arteries with no significant blockage. LVEDP was around 9 mmHg. LV ejection fraction around 15%
[2024-12-03] MEDS: sodium chloride 0.9% 1,000 ML 125 ML IV (11:44)
--- NOTE | 2024-12-03 15:43 | PC.NURSE ---
TR band removed per protocol. No hematoma formation. Patient and educated regarding post angiogram home care instructions. No questions or concerns. Verbalize understanding. Patient discharged home, all belongings sent home with patient.
== END 2024-12-03 16:00 | disposition home or self-care (01) ==
LOC: CCL 07:36 → CSU 12:13
PROVIDERS: PCP Nurse Practitioner Family; Visit Provider Internal Medicine Cardiovascular Disease
DX: I25.10 Atherosclerotic heart disease of native coronary artery without angina pectoris (principal); E11.9 Type 2 diabetes mellitus without complications; E78.5 Hyperlipidemia, unspecified; Z95.0 Presence of cardiac pacemaker; I10 Essential (primary) hypertension; N40.0 Benign prostatic hyperplasia without lower urinary tract symptoms; I42.9 Cardiomyopathy, unspecified; E78.2 Mixed hyperlipidemia
CPT/HCPCS: 36415; 80048; 85025; 93458; 96365; 96374; 96375; 99152; 99153; C1769; C1887; C1894; G0378; J1644; J2250; J2371; J3010; J3490; J7030; J7050; Q0163; Q9967

== ENCOUNTER → 2024-12-10 15:32 | Outpatient (BNVA) | payer MEDICARE, SELFPAY | PROVIDERS: PCP Nurse Practitioner Family; Visit Provider Nurse Practitioner Family | DX: I42.9 Cardiomyopathy, unspecified (principal); E78.2 Mixed hyperlipidemia; I49.9 Cardiac arrhythmia, unspecified; I10 Essential (primary) hypertension; Z95.0 Presence of cardiac pacemaker | CPT/HCPCS: 36415; 80048; 83880; 85025; 99214 ==

== ENCOUNTER 2024-12-22 14:44 | Outpatient (CLI) | payer MEDICARE, SELFPAY ==
[2024-12-22 15:17] LABS: Anion Gap 19.9 (5-19); Blood Urea Nitrogen 34 mg/dL (8-23); Calcium 9.3 mg/dL (8.5-10.5); Carbon Dioxide 21 mmol/L (22-29); Chloride 97 mmol/L (98-107); Glucose 125 mg/dL (65-115); Osmolality Calculated 285 mOsm/kg (285-295); Potassium 4.9 mmol/L (3.5-5.1); Sodium 133 mmol/L (136-145)
== END 2024-12-22 14:45 | disposition home or self-care (01) ==
LOC: LAB 14:46
PROVIDERS: PCP Nurse Practitioner Family; Visit Provider Nurse Practitioner Family
DX: R06.02 Shortness of breath (principal)
CPT/HCPCS: 36415; 80048

== ENCOUNTER → 2025-01-11 12:57 | Outpatient (BNVA) | payer MEDICARE, SELFPAY | PROVIDERS: PCP Nurse Practitioner Family; Visit Provider Nurse Practitioner Family | DX: I42.8 Other cardiomyopathies (principal); I11.0 Hypertensive heart disease with heart failure; I50.20 Unspecified systolic (congestive) heart failure; E78.2 Mixed hyperlipidemia; Z95.0 Presence of cardiac pacemaker; E11.9 Type 2 diabetes mellitus without complications; Z79.84 Long term (current) use of oral hypoglycemic drugs | CPT/HCPCS: 99214 ==

== ENCOUNTER 2025-01-29 07:36 | Outpatient (CLI) | payer MEDICARE, SELFPAY ==
--- NOTE | 2025-01-29 07:45 | USCV_ITS ---
Jefferson Gamez Age: 79 Gender: M : 1945 Exam Date: 01/29/2025 08:07 Ordering Phys: Shanell [place] NP Technologist: Peter Alexander Exam Location: [facility] [place] Indication: systolic heart failure BP: 99 / 62 HR: 64 Rhythm: Sinus Technical Quality: Adequate MEASUREMENTS (Male / Female) Normal Values 2D ECHO LV Diastolic Diameter PLAX 5.4 cm 4.2 - 5.9 / 3.9 - 5.3 cm IVS Diastolic Thickness 1.0 cm 0.6 - 1.0 / 0.6 - 0.9 cm IVS Systolic Thickness 1.3 cm LVPW Diastolic Thickness 1.0 cm 0.6 - 1.0 / 0.6 - 0.9 cm LVPW Systolic Thickness 1.6 cm LVOT Diameter 2.1 cm LV Ejection Fraction 2D Teich 16.9 % LV Ejection Fraction MOD 4C 20.1 % LV Ejection Fraction MOD 2C 23.5 % LV Ejection Fraction 2C AL 23.7 % LA Diameter 3.0 cm LA Sys Volume AL 57.2 cm cubed LA Sys Volume Index AL 28.9 cm cubed/m squared Aorta at Sinotubular Diameter 2.6 cm IVC Diameter 1.3 cm M-MODE LA Ao Ratio MM 1.0 AV Cusp Separation MM 2.2 cm DOPPLER AV Peak Velocity 119.0 cm/s LVOT Peak Velocity 65.0 cm/s AV Area Cont Eq vti 1.9 cm squared AV Area Cont Eq pk 1.8 cm squared MV Peak Velocity 79.0 cm/s MV Area PHT 3.6 cm squared Mitral E to A Ratio 0.7 TV Peak Velocity 237.0 cm/s TR Peak Velocity 270.0 cm/s TR Peak Gradient 29.2 mmHg TR Mean Velocity 208.0 cm/s TR Mean Gradient 19.0 mmHg TR Velocity Time Integral 68.4 cm PV Peak Velocity 97.0 cm/s RV Ejection Time 0.2 s FINDINGS Left Ventricle Severe global hypokinesis. Mildly dilated LV cavity. Estimated LVEF 20%. Right Ventricle Right ventricle normal in size. Fair RV systolic function. Right Atrium Normal right atrial size. Left Atrium Mildly dilated left atrium. Mitral Valve Structurally normal mitral valve. Mild mitral valve regurgitation. Aortic Valve Thickened aortic valve. No aortic valve stenosis. No aortic valve regurgitation. Tricuspid Valve Structurally normal tricuspid valve. Trace tricuspid valve regurgitation. TVPG estimated at 29 mmHg. Pulmonic Valve Pulmonic valve not well visualized. Trace pulmonary valve regurgitation. Pericardium No pericardial effusion. Aorta Normal size aortic root and proximal ascending aorta. IVC Normal inferior vena cava. CONCLUSIONS Severe LV systolic dysfunction. Global hypokinesis with LVEF of 20%. Mildly dilated LV cavity. Mildly dilated left atrium with mild mitral regurgitation. Normal size right ventricle with fair RV systolic function. Upper normal RV and pulmonary pressures. No significant change in LVEF compared to last echo in November 2024. Ynes Moran MD (Electronically Signed) Final Date: 30 January 2025 08:53 S
== END 2025-01-29 07:37 | disposition home or self-care (01) ==
LOC: RAD 07:46
PROVIDERS: PCP Nurse Practitioner Family; Visit Provider Nurse Practitioner Family
DX: I42.9 Cardiomyopathy, unspecified (principal); R93.1 Abnormal findings on diagnostic imaging of heart and coronary circulation; I51.7 Cardiomegaly; I34.0 Nonrheumatic mitral (valve) insufficiency; I35.8 Other nonrheumatic aortic valve disorders
CPT/HCPCS: 93306

== ENCOUNTER → 2025-02-22 15:30 | Outpatient (BNVA) | payer MEDICARE, SELFPAY | PROVIDERS: PCP Nurse Practitioner Family; Visit Provider Internal Medicine Cardiovascular Disease | DX: R06.02 Shortness of breath (principal); I10 Essential (primary) hypertension; Z79.899 Other long term (current) drug therapy | CPT/HCPCS: 36415; 80048; 83880; 99214 ==

== ENCOUNTER → 2025-03-09 13:45 | Outpatient (BNVA) | payer MEDICARE, SELFPAY | PROVIDERS: PCP Nurse Practitioner Family; Visit Provider Podiatrist Foot & Ankle Surgery | DX: E11.42 Type 2 diabetes mellitus with diabetic polyneuropathy (principal); L60.3 Nail dystrophy; G62.9 Polyneuropathy, unspecified; Z79.84 Long term (current) use of oral hypoglycemic drugs | CPT/HCPCS: 11721; 99203 ==

== ENCOUNTER → 2025-03-25 11:36 | Outpatient (BNVA) | payer MEDICARE, SELFPAY | PROVIDERS: PCP Nurse Practitioner Family; Visit Provider Nurse Practitioner Family | DX: I11.0 Hypertensive heart disease with heart failure (principal); I50.23 Acute on chronic systolic (congestive) heart failure; I42.8 Other cardiomyopathies; E78.5 Hyperlipidemia, unspecified; E11.9 Type 2 diabetes mellitus without complications; Z79.84 Long term (current) use of oral hypoglycemic drugs; E87.5 Hyperkalemia; Z79.82 Long term (current) use of aspirin; I47.20 Ventricular tachycardia, unspecified; I49.9 Cardiac arrhythmia, unspecified | CPT/HCPCS: 93005; 99214 ==

== ENCOUNTER → 2025-05-11 14:49 | Outpatient (BNVA) | payer MEDICARE, SELFPAY | PROVIDERS: PCP Nurse Practitioner Family; Visit Provider Podiatrist Foot & Ankle Surgery | DX: E11.42 Type 2 diabetes mellitus with diabetic polyneuropathy (principal); L60.3 Nail dystrophy; G62.9 Polyneuropathy, unspecified; Z79.84 Long term (current) use of oral hypoglycemic drugs | CPT/HCPCS: 11721 ==

== ENCOUNTER → 2025-05-25 09:28 | Outpatient (BNVA) | payer MEDICARE, SELFPAY | PROVIDERS: PCP Nurse Practitioner Family; Visit Provider Nurse Practitioner Family | DX: E78.2 Mixed hyperlipidemia (principal); I10 Essential (primary) hypertension; Z95.0 Presence of cardiac pacemaker; I42.9 Cardiomyopathy, unspecified; Z95.811 Presence of heart assist device | CPT/HCPCS: 99214 ==

== ENCOUNTER → 2025-07-13 13:27 | Outpatient (BNVA) | payer MEDICARE, SELFPAY | PROVIDERS: PCP Nurse Practitioner Family; Visit Provider Podiatrist Foot & Ankle Surgery | DX: E11.42 Type 2 diabetes mellitus with diabetic polyneuropathy (principal); L60.3 Nail dystrophy; G62.9 Polyneuropathy, unspecified; Z79.84 Long term (current) use of oral hypoglycemic drugs | CPT/HCPCS: 11721 ==

== ENCOUNTER → 2025-09-30 13:29 | Outpatient (BNVA) | payer MEDICARE, SELFPAY | PROVIDERS: PCP Nurse Practitioner Family; Visit Provider Podiatrist Foot & Ankle Surgery | DX: E11.42 Type 2 diabetes mellitus with diabetic polyneuropathy (principal); L60.3 Nail dystrophy; G62.9 Polyneuropathy, unspecified; Z79.84 Long term (current) use of oral hypoglycemic drugs | CPT/HCPCS: 11721 ==